=== PATIENT | female | born 1995 | race Caucasian/White ===

== ENCOUNTER 2018-03-16 16:19 | Emergency (ER) | payer OTHER, SELFPAY ==
[2018-03-16 16:25] VITALS: BP 147/79; PULSE 59; RESP 18; TEMP 36.9; O2SAT 100; BMI 32.3
--- NOTE | 2018-03-16 17:02 | ED.VISSUMM ---
- ER Visit Summary Date of Service: 03/16/18 Chief Complaint: Occupational exposure History of Present Illness: The patient is a 22 F presenting for evaluation secondary to an occupational exposure. Patient states that she was using toilet in the emergency department. She went to wipe after she urinated, and she noted that there was a reasonable amount of blood on the toilet paper. She states that she is not currently menstruating and she is not bleeding, when she checked underneath the toilet seat there was blood underneath the toilet seat from an unknown source. States that she then checked the toilet paper and the area that was wet is the same area that there is blood which leads her to believe that there potentially was a mucosal exposure. Denies any symptoms at this time. Physical Examination: Vital signs are within normal limits, patient is afebrile. General: Patient is well-nourished well-developed and in no acute distress. Head: Normocephalic, atraumatic Eyes: Pupils equal round and reactive bilaterally, extra occular motion intact bialterally ENT: Moist mucous membranes Neck: Supple, no lymphadenopathy, no JVD, no meningismus CVS: Heart regular rate and rhythm, no murmurs, rubs or gallops, radial pulses 2+ bilaterally Resp: Respirations nondistressed, lung sounds clear bilaterally Abdomen: Soft, nontender, nondistended, no palpable masses, normal bowel sounds Back: Nontender Extremities: Nontender, atraumatic, active full range of motion, no peripheral edema Skin: warm, no rashes, no petechia Neuro: Alert and oriented x 4, CN 2-12 intact, no lateralizing neurological defecits Psyc: Normal affect Test Results: Exposure panel was drawn and sent and is pending Treatment Plan: Patient presented secondary to an exposure. While this is potentially a mucosal exposure, there is no way to know how long the blood is been there, there is no way to know the source, and this was toilet paper to mucosal, so I do not really think that this is a high risk exposure that would require postexposure prophylaxis. Post exposure panel was drawn, patient will follow up with corporate care. Disposition: Discharge Impression: 1. Occupational exposure This note was generated with [employer] dictation software. It may contain incorrect words, spelling, and punctuation that were not noted in review of the chart prior to signing ED Disposition - Plan for ED Patient: Chief Complaint: Occup Expose Diagnosis: Occupational exposure in workplace Instructions: ED Body Fluid Exp HC Worker Referrals: [facility] [GROUP OF PHYSICIANS] - 3-5 Days
--- NOTE | 2018-03-16 17:05 | ED.DCSUM_ITS ---
- ER Visit Summary Date of Service: 03/16/18 Chief Complaint: Occupational exposure History of Present Illness: The patient is a 22 F presenting for evaluation secondary to an occupational exposure. Patient states that she was using toilet in the emergency department. She went to wipe after she urinated, and she noted that there was a reasonable amount of blood on the toilet paper. She states that she is not currently menstruating and she is not bleeding, when she checked underneath the toilet seat there was blood underneath the toilet seat from an unknown source. States that she then checked the toilet paper and the area that was wet is the same area that there is blood which leads her to believe that there potentially was a mucosal exposure. Denies any symptoms at this time. Physical Examination: Vital signs are within normal limits, patient is afebrile. General: Patient is well-nourished well-developed and in no acute distress. Head: Normocephalic, atraumatic Eyes: Pupils equal round and reactive bilaterally, extra occular motion intact bialterally ENT: Moist mucous membranes Neck: Supple, no lymphadenopathy, no JVD, no meningismus CVS: Heart regular rate and rhythm, no murmurs, rubs or gallops, radial pulses 2 + bilaterally Resp: Respirations nondistressed, lung sounds clear bilaterally Abdomen: Soft, nontender, nondistended, no palpable masses, normal bowel sounds Back: Nontender Extremities: Nontender, atraumatic, active full range of motion, no peripheral edema Skin: warm, no rashes, no petechia Neuro: Alert and oriented x 4, CN 2-12 intact, no lateralizing neurological defecits Psyc: Normal affect Test Results: Exposure panel was drawn and sent and is pending Treatment Plan: Patient presented secondary to an exposure. While this is potentially a mucosal exposure, there is no way to know how long the blood is been there, there is no way to know the source, and this was toilet paper to mucosal, so I do not really think that this is a high risk exposure that would require postexposure prophylaxis. Post exposure panel was drawn, patient will follow up with corporate care. Disposition: Discharge Impression: 1. Occupational exposure This note was generated with [employer] dictation software. It may contain incorrect words, spelling, and punctuation that were not noted in review of the chart prior to signing ED Disposition - Plan for ED Patient: Chief Complaint: Occup Expose Diagnosis: Occupational exposure in workplace Instructions: ED Body Fluid Exp HC Worker Referrals: [facility] [GROUP OF PHYSICIANS] - 3-5 Days
[2018-03-16 19:36] LABS: HIV - WCH Non-Reactive (Nonreactive)
[2018-03-18 09:11] LABS: HEPATITIS B SURFACE AG Negative (Negative); Hep B Surface Antibodies EMP Reactive (.); Hep C Antibodies <0.1 s/co ratio (0.0-0.9)
== END 2018-03-16 17:59 | disposition home or self-care (01) ==
LOC: ED 17:08
PROVIDERS: Emergency Provider Emergency Medicine; Family Provider Family Medicine; PCP Family Medicine
DX: Z77.21 Contact with and (suspected) exposure to potentially hazardous body fluids (principal)
CPT/HCPCS: 86703; 86803; 87340; 99282

== ENCOUNTER 2018-05-25 07:32 | Emergency (ER) | payer OTHER, SELFPAY ==
[2018-05-12 12:05] VITALS: BMI 33.0
[2018-05-25 07:34] VITALS: BP 125/73; PULSE 71; RESP 19; TEMP 37.1; O2SAT 99; BMI 32.3
[2018-05-25 07:49] LABS: Mucous, Urine 0 SEEN /hpf (<or=2+); Red Blood Cells-Urine 0 SEEN /hpf (0-5); White Blood Cells 0 SEEN /hpf (0-5)
[2018-05-25 08:21] LABS: Color, Urine SEE COMMENT BELOW (Yellow); Glucose, Dipstick Normal (Normal); Ketone-Dipstick Negative (Negative); Leukocyte Esterase-Dipstick Negative /ul (Negative); Nitrite-Dipstick Positive (Negative); Occult Blood-Urine Negative /ul (Negative); Protein-Dipstick 30 mg/dl (Negative); Urine Bilirubin Dipstick 6 mg/dL (Negative); Urine Clarity Sl. Cloudy (Clear); Urine Urobilinogen 8 mg/dl (Normal)
[2018-05-25 08:22] LABS: Bacteria 1+ /hpf (None Seen); Squamous Epithelial Cells - UA 0-5 SEEN /hpf (5-10)
--- NOTE | 2018-05-25 08:57 | ED.VISSUMM ---
- ER Visit Summary Date of Service: 05/25/18 Chief Complaint: [Dysuria] History of Present Illness: The patient is a 22 F [presents to the emergency department complaint of dysuria that started 3 days ago. Patient complains of frequency and urgency. Today patient noticed that she had sudden onset of low back pressure that lasted about a minute then mostly resolved. Patient denies any significant abdominal pain. She is not had any fever. She is not had any nausea or vomiting. Patient's last menstrual period was on the 12th of this month and she does not believe she is . Patient denies any pain radiating into her legs. Patient is not had any abnormal vaginal discharge or bleeding. Patient states that she started taking Azo yesterday.] Physical Examination: [HEENT-PERRLA, EOMI. Cranial nerves II through XII grossly intact. TMs clear. Mucous membranes moist. No adenopathy. Cardiovascular-regular rate and rhythm without murmur or ectopy Lungs-clear to auscultation, chest wall stable without crepitus or subcu emphysema Abdomen-normoactive bowel sounds, soft, nontender, no rebound or rigidity, no peritoneal signs. Extremities-intact ?4, normal range of motion, normal pulses, atraumatic] Test Results: [Urinalysis obtained was positive for nitrites, negative leukocyte esterase, 0 WBCs, 0 RBCs, +1 bacteria.] Emergency Department Course and Treatment: [Patient was treated with 1 dose of Bactrim DS] Treatment Plan: [Patient will be treated with 3 days of Bactrim and a urine culture was sent. Clinically I suspect patient has UTI. I do not feel patient's history or signs and symptoms consistent with kidney stone. Her back pain was pressure-like and diffuse bilaterally.] Disposition: [Discharged home in stable condition. Patient advised to follow-up with her primary care physician within next 5-7 days to get her culture results. Patient advised to return if worsening pain, fever, vomiting, or condition should worsen anyway.] Impression: [UTI] This note was generated with [employer] dictation software. It may contain incorrect words, spelling, and punctuation that were not noted in review of the chart prior to signing ED Disposition - Plan for ED Patient: Chief Complaint: Complaint Referrals: Care Physician,No Primary [Primary Care Provider] -
--- NOTE | 2018-05-25 09:00 | ED.DCSUM_ITS ---
- ER Visit Summary Date of Service: 05/25/18 Chief Complaint: [Dysuria] History of Present Illness: The patient is a 22 F [presents to the emergency department complaint of dysuria that started 3 days ago. Patient complains of frequency and urgency. Today patient noticed that she had sudden onset of low b ack pressure that lasted about a minute then mostly resolved. Patient denies any significant abdominal pain. She is not had any fever. She is not had any nausea or vomiting. Patient's last menstrual period was on the 12th of this month and she does not believe she is . Patient denies any pain radiating into her legs. Patient is not had any abnormal vaginal discharge or bleeding. Patient states that she started taking Azo yesterday.] Physical Examination: [HEENT-PERRLA, EOMI. Cranial nerves II through XII grossly intact. TMs clear. Mucous membranes moist. No adenopathy. Cardiovascular-regular rate and rhythm without murmur or ectopy Lungs-clear to auscultation, chest wall stable without crepitus or subcu emphysema Abdomen-normoactive bowel sounds, soft, nontender, no rebound or rigidity, no peritoneal signs. Extremities-intact ?4, normal range of motion, normal pulses, atraumatic] Test Results: [Urinalysis obtained was positive for nitrites, negative leukocyte esterase, 0 WBCs, 0 RBCs, +1 bacteria.] Emergency Department Course and Treatment: [Patient was treated with 1 dose of Bactrim DS] Treatment Plan: [Patient will be treated with 3 days of Bactrim and a urine culture was sent. Clinically I suspect patient has UTI. I do not feel patient's history or signs and symptoms consistent with kidney stone. Her back pain was pressure-like and diffuse bilaterally.] Disposition: [Discharged home in stable condition. Patient advised to follow-up with her primary care physician within next 5-7 days to get her culture results. Patient advised to return if worsening pain, fever, vomiting, or condition should worsen anyway.] Impression: [UTI] This note was generated with [employer] dictation software. It may contain incorrect words, spelling, and punctuation that were not noted in review of the chart patrciia or to signing ED Disposition - Plan for ED Patient: Chief Complaint: Complaint Referrals: Care Physician,No Primary [Primary Care Provider] -
--- NOTE | 2018-05-25 09:00 | ED.DEP ---
ED Disposition - Plan for ED Patient: Chief Complaint: Complaint Instructions: ED UTI Cystitis Female Prescriptions: Smz/Tmp Ds [Bactrim Ds] 1 tab PO BID #6 tab Referrals: Care Physician,No Primary [Primary Care Provider] - 5-7 Days
[2018-05-25 09:07] VITALS: BP 128/75; PULSE 82; RESP 14; O2SAT 99
[2018-05-25] MEDS: Smz/Tmp Ds Tablet 1 TABLET PO (09:10)
--- OUTSIDE RECORDS SUMMARY | 2018-07-06 20:28 | XMS RPT_ITS ---
:1995 Author Organization [facility] Care Team Providers Name Role Phone SERENA II, DIOGO Alanis Referring Unavailable COOPERRIDER II, DIOGO H Referring Unavailable COOPERRIDER II, DIOGO H Attending Unavailable COOPERRIDER II, DIOGO H Referring Unavailable COOPERRIDER II, DIOGO H Referring Unavailable Oberhauser, Ladi L Attending Unavailable Oberhauser, Ladi L Admitting Unavailable Oberhauser, Ladi L Primary Care Unavailable Oberhauser, Ladi L Admitting Unavailable Oberhauser, Ladi L Attending Unavailable Oberhauser, Ladi L Primary Care Unavailable Oberhauser, Ladi L Attending Unavailable Oberhauser, Ladi L Primary Care Unavailable Oberhauser, Ladi L Admitting Unavailable Oberhauser, Ladi L Attending Unavailable Oberhauser, Ladi L Primary Care Unavailable Oberhauser, Ladi L Admitting Unavailable AYO JONES Attending Unavailable AYO JONES Referring Unavailable AYO JONES Primary Care Unavailable JOSE ANTONIO AGUILAR Primary Care Unavailable Jericho Scanlon Attending Unavailable AYO JONES Attending Unavailable AYO JONES Referring Unavailable AYO JONES Primary Care Unavailable Antonio Alberto Attending Unavailable LEILA, JOSE ANTONIO Referring Unavailable Shonda Reyes Attending Unavailable Primay Care Physicia, No Primary Care Unavailable PROBLEMS PROBLEMS DATE TYPE CONDITION / CODE ATTENDING STATUS SOURCE 06/05/2018 Unknown Z77.21 - Contact AYO JONES Active [place] with and Community (suspected) Hospital exposure to Repository potentially hazardous body fluids / Z77.21(ICD-10) 05/12/2018 Unknown R05 - Cough / Antonio Alberto Active [place] R05(ICD-10) [facility] Repository 05/12/2018 Unknown J06.9 - Acute Antonio Alberto Active [place] upper respiratory Community infection, Hospital unspecified / Repository J06.9(ICD-10) 05/12/2018 Unknown J40 - Bronchitis, Antonio Alberto Active [place] not specified as Community acute or chronic Hospital / J40(ICD-10) Repository 03/08/2018 Active Encounter for COOPERRIDER II, Active [facility] general adult DIOGO H [facility] [place] medical Repository examination without abnormal findings / Z00.00(ICD-10) 07/21/2017 Active Myopia, bilateral NA Active [facility] / H52.13(ICD-10) [facility] Repository PROCEDURES PROCEDURES No Procedure Records FoundRESULTS RESULTS HEPATITIS C,RNA PCR Collected: 06/11/2018 Status: F Source: [place] VIRAL [place] 7:07 AM [facility] REPOSITORY TYPE CODE TESTS RESULT OUT OF RANGE REFERENCE UNITS LAB L7000.7100 . IU/mL HCV Normal HCV Not Detected QT PCR LAB L7000.7350 . Test Normal HCV not performed log 10 LAB L7000.7500 . Normal TEST Comment INFO: Result Comment: The quantitative range of this assay is 15 IU/mL to 100 million IU/mL. Performed at: - [facility] [id number] Financial Analysis Manager: Phuong Gomez MD, Phone: [phone] Performed By: #### L7000.7000 #### [facility] (refer to report for specific site) refer to report for address and phone number HIV - [facility] Collected: 06/05/2018 Status: F Source: [place] 11:32 AM [facility] REPOSITORY TYPE CODE TESTS RESULT OUT OF RANGE REFERENCE UNITS LAB L3890.6005 Nonreactive Normal HIV - [facility] Non-Reactive Performed By: #### L3890.6005 #### [facility] [address] [place], [place], [id number] HEPATITIS ABC PROFILE Collected: 06/05/2018 Status: F Source: [place] 11:32 AM [facility] REPOSITORY TYPE CODE TESTS RESULT OUT OF RANGE REFERENCE UNITS LAB L3100.0200 Negative Normal HEP A Negative IgM 6734 LAB L3100.0300 Negative Normal HEP A Negative AB,T.6726 LAB L3100.0400 Negative Normal HB Negative SURF AG LAB L3100.0440 Negative Normal HB Negative CORE [id number] LAB L3100.0460 Negative Normal HEP B Negative CORE,TOT LAB L3100.0510 . Normal Hep B Reactive Greyson AB Result Comment: Non Reactive: Inconsistent with immunity, less than 10 mIU/mL Reactive: Consistent with immunity, greater than 9.9 mIU/mL LAB L3100.0750 0.0-0.9 s/co ratio Normal HCV Ab 0.1 LAB L3100.0765 . Normal COMMENT Comment Result Comment: Non reactive HCV antibody screen is consistent with no HCV infection, unless recent infection is suspected or other evidence exists to indicate HCV infection. Performed at: - [facility] [id number] Financial Analysis Manager: Jose Cruz Brown PhD, Phone: [phone] Performed By: #### L3000.0700 #### [facility] (refer to report for specific site) refer to report for address and phone number DISCHARGE INSTRUCTION Observed: 05/25/2018 Status: F Source: [place] 9:02 AM [facility] REPOSITORY [facility] Medical Records Department [address] [place] [address] Discharge Instruction 05/25/18 09 MR#: [id number] Acct: [id number] Name: FELIXVIANCA Rep #: [id number] : 1995 From: Shonda Reyes DO PCP: Care Physician, No Primary Status: REG ER ED Disposition - Plan for ED Patient: Chief Complaint: Complaint Instructions: ED UTI Cystitis Female Prescriptions: Smz/Tmp Ds [Bactrim Ds] 1 tab PO BID #6 tab Referrals: Care Physician,No Primary [Primary Care Provider] - 5-7 Days What to do if you have Problems For any increased pain, shortness of breath, bleeding, nausea or vomiting, chest pain, or any unexpected problems, contact your Primary Care Provider. Call [facility] ([phone]) or report to the closest Emergency Room. Call 911 if necessary. 05/25/18 09 <Electronically signed by Shonda Reyes DO> Date Shonda Reyes DO Cosigner Signature (If Indicated): Date CC: No Primary Care Physician EMERGENCY DEPARTMENT Observed: 05/25/2018 Status: F Source: [place] SUMMARY 9:00 AM [facility] REPOSITORY [facility] Medical Records Department [address] [place] [address] Emergency Department Summary 05/25/18 0857 MR#: [id number] Acct: [id number] Name: FELIXVIANCA Rep #: [id number] : 1995 From: Shonda Reyes DO PCP: Care Physician, No Primary Status: REG ER - ER Visit Summary Date of Service: 05/25/18 Chief Complaint: [Dysuria] History of Present Illness: The patient is a 22 F [presents to the emergency department complaint of dysuria that started 3 days ago. Patient complains of frequency and urgency. Today patient noticed that she had sudden onset of low back pressure that lasted about a minute then mostly resolved. Patient denies any significant abdominal pain. She is not had any fever. She is not had any nausea or vomiting. Patient's last menstrual period was on the 12th of this month and she does not believe she is . Patient denies any pain radiating into her legs. Patient is not had any abnormal vaginal discharge or bleeding. Patient states that she started taking Azo yesterday.] Physical Examination: [HEENT-PERRLA, EOMI. Cranial nerves II through XII grossly intact. TMs clear. Mucous membranes moist. No adenopathy. Cardiovascular-regular rate and rhythm without murmur or ectopy Lungs-clear to auscultation, chest wall stable without crepitus or subcu emphysema Abdomen-normoactive bowel sounds, soft, nontender, no rebound or rigidity, no peritoneal signs. Extremities-intact 4, normal range of motion, normal pulses, atraumatic] Test Results: [Urinalysis obtained was positive for nitrites, negative leukocyte esterase, 0 WBCs, 0 RBCs, +1 bacteria.] Emergency Department Course and Treatment: [Patient was treated with 1 dose of Bactrim DS] Treatment Plan: [Patient will be treated with 3 days of Bactrim and a urine culture was sent. Clinically I suspect patient has UTI. I do not feel patient's history or signs and symptoms consistent with kidney stone. Her back pain was pressure- like and diffuse bilaterally.] Disposition: [Discharged home in stable condition. Patient advised to follow-up with her primary care physician within next 5-7 days to get her culture results. Patient advised to return if worsening pain, fever, vomiting, or condition should worsen anyway.] Impression: [UTI] This note was generated with [employer] dictation software. It may contain incorrect words, spelling, and punctuation that were not noted in review of the chart prior to signing ED Disposition - Plan for ED Patient: Chief Complaint: Complaint Referrals: Care Physician,No Primary [Primary Care Provider] - What to do if you have Problems For any increased pain, shortness of breath, bleeding, nausea or vomiting, chest pain, or any unexpected problems, contact your Primary Care Provider. Call [facility] ([phone]) or report to the closest Emergency Room. Call 911 if necessary. 05/25/18 0900 <Electronically signed by Shonda Reyes DO> Date Shonda Reyes DO Cosigner Signature (If Indicated): Date CC: No Primary Care Physician URINALYSIS, COMPLETE Collected: 05/25/2018 Status: F Source: [place] 7:45 AM [facility] REPOSITORY Order Comment: How was Urine Obtained? CLEAN CATCH TYPE CODE TESTS RESULT OUT OF RANGE REFERENCE UNITS LAB L400.3000 Yellow Normal COLOR SEE COMMENT BELOW Result Comment: Visual Urine Color: ORANGE LAB L400.3050 Clear Normal CLARITY Sl. Cloudy LAB L400.3200 Normal mg/dl Normal GLUCOSE, UR Normal LAB L400.3300 Negative mg/dL High BILIRUBIN URINE 6 Result Comment: COLOR OF URINE MAY AFFECT DIPSTICK RESULTS. LAB L400.3400 Negative mg/dl Normal KETONE UR Negative LAB L400.3465 1.002-1.030 Normal SP.GR. DIPSTX 1.010 LAB L400.3550 5.0 - 8.0 pH Normal UR 5.0 LAB L400.3600 Negative mg/dl High PROT DIPSTX 30 LAB L400.3700 Normal mg/dl High UROBILI 8 LAB L400.3750 Negative High NITRITE UR Positive LAB L400.3780 Negative /ul Normal OCCULT Negative BLOOD-UR LAB L400.3800 Negative /ul Normal LEUK ESTERASE Negative LAB L400.4050 0-5 /hpf Normal WBC 0 SEEN LAB L400.4100 0-5 /hpf Normal RBC-UA 0 SEEN LAB L400.4150 5-10 /hpf Normal SQUAM EPI 0-5 SEEN LAB L400.4300 None Seen /hpf Normal BACTERIA 1+ LAB L400.4350 <or=2+ /hpf Normal MUCUS, URINE 0 SEEN Performed By: #### L400.0001 #### [facility] [address] [place], [place], [id number] Observed: 05/25/2018 Status: F Source: [place] CULTURE, URINE 7:45 AM [facility] REPOSITORY Order Date: 05/25/18 Has pt arrived? Y Urine Culture ORGANISM 1: Mixed Gram Pos AND Gram Neg Org [place] Count <1000 MIX CULTURE Mixed contaminants. Submit a new specimen if indicated. Performed By: #### M100.0650 #### [facility] [address] [place], [place], [address] URGENT CARE VISIT Observed: 05/12/2018 Status: F Source: [place] REPORT 12:56 PM [facility] REPOSITORY [facility] [address] [place] [address] [address] [place], [place] [address] OFFICE VISIT Date of Service: 05/12/18 MR#: [id number] Acct: [id number] Name: VIANCA AQUINO Rep #: [id number] : 1995 Provider: Antonio ALBA Age/Sex: 22/F Location: [facility] Status: Signed Intake Vital Signs05/12/18 Height 5 ft 10 in 05/12/18 Weight: 230 lb Intake Visit Reasons: SORE THROAT, COUGH, HEAD CONGESTION Chief Complaint: Dry cough, body aches Table Assembler Required: No Accompanied by: None Allergies No Known Allergies Allergy (Verified 03/16/18 16:27) Medications benzonatate 200 mg capsule 200 mg PO TID PRN #20 cap 05/12/18 [Rx Confirmed 05/12/18] PFSH Medical History History of wisdom tooth extraction (Acute) Surgical History History of tonsillectomy (Acute) Social History Smoking Status: Never smoker alcohol intake: current alcohol intake frequency: holidays/special occasions only Alcohol type: hard liquor HPI HPI Chief Complaint: Dry cough, body aches Details: VIANCA AQUINO, is a 22 F who presents to the office today for initial evaluation approximate 24-hour history of progressively worsening dry cough, chills, clear rhinorrhea, body aches. No complaints of fever, sweats, rash, chest pain/shortness of breath. Patient is a non-smoker, noting no other members in household with similar complaints. Patient is particularly concerned because she works in the hospital in environmental services and is current concerned about spreading her probable infection. She notes taking no ighx-udx-sbvlqju products to assist with symptoms. She notes no other associated symptoms and no other alleviating or aggravating factors. ROS Const Constitutional: No other (ROS negative x10 other than as noted above) Exam Const General: cooperative, healthy appearing, no acute distress, uncomfortable Nutritional Appearance: average body habitus Orientation: alert, awake, oriented x3 HENMT Head: normal to inspection Ears: hearing grossly normal bilaterally, external ears normal, TM's normal bilaterally, EAC's normal Nose: external nose normal, nares normal, septum normal, nasal discharge clear bilaterally (Scant amount) Face and sinus: sinuses nontender, normal facial exam, face symmetric Mouth: tongue normal, lip normal, oral mucosae normal Teeth and gingiva: gingiva normal, dentition normal Throat: uvula midline, tonsils normal, posterior oropharynx normal, no postnasal drainage Eyes General: appearance normal, both eyes and all related structures Neck Neck: normal visual inspection, full ROM, no lymphadenopathy, no meningeal signs, supple Neck mass: No Thyroid: thyroid normal Lymphatic: no lymphadenopathy noted Chest Chest palpation AND inspection: normal inspection of the chest Resp Effort AND Inspection: normal respiratory effort, able to speak in complete sentences, symmetric chest movement, cough Quality of cough: dry (Nonproductive; rapid flu test today negative) Auscultation: Bilateral: Clear to Auscultation Cardio Palpation: normal PMI Rate: regular rate Rhythm: regular rhythm Heart Sounds: S1 normal, S2 normal, no gallops, no murmurs, no rubs Pulses: radial pulses present GI Inspection: normal to inspection Palpation: soft, no hepatosplenomegaly Skin General: no rashes or lesions noted Neuro General: alert, awake, oriented x3, gait normal Cognition: normal cognition Speech: speech normal Gait: normal gait Motor: muscle tone normal throughout Sensory Exam: no sensory deficits noted Psych Appearance: grossly normal Mental Status: mental status grossly normal Mood: congruent mood Affect: normal affect Speech and Movement: speech and movement normal Attitude: cooperative Thought Process: normal Thought Content: normal Judgment: judgment good Results BMSFLUAB Office Flu A AND B Negative FLU A AND B Last Edit by Saskia Bull on 05/12/18 12:34 Assessment AND Plan Problems 1. URI (upper respiratory infection) J06.9 2. Bronchitis J40 Plan Benzonatate as prescribed today. Work excuse for today and tomorrow; if work excuse knees extended must follow-up with PCP for reevaluation. Clear fluids, rest, Advil/Tylenol as needed for symptomatic relief. Follow-up PCP on an as-needed basis should symptoms not improve, sooner should symptoms worsen or any other concerns develop. Patient states acknowledging understanding all the above. This note was generated with [employer] software. It may contain incorrect words, spelling, and punctuation that were not noted in checking the note before signing. Orders Orders: Medications New: Coding Level of Care Code Off vis,new,level 3 Diagnoses URI (upper respiratory infection) J06.9 Bronchitis J40 05/12/18 1256 <Electronically signed by Antonio ALBA> Date Antonio ALBA [facility] Signature: Date (if applicable) CC: EMERGENCY DEPARTMENT Observed: 03/17/2018 Status: F Source: [place] SUMMARY 2:35 AM [facility] Medical Records Department [address] [place] [address] Emergency Department Summary 03/16/18 1702 MR#: [id number] Acct: [id number] Name: VIANCA AQUINO Rep #: [id number] : 1995 22 From: Jericho Scanlon MD PCP: Jose Antonio Aguilar MD Status: DEP ER - ER Visit Summary Date of Service: 03/16/18 Chief Complaint: Occupational exposure History of Present Illness: The patient is a 22 F presenting for evaluation secondary to an occupational exposure. Patient states that she was using toilet in the emergency department. She went to wipe after she urinated, and she noted that there was a reasonable amount of blood on the toilet paper. She states that she is not currently menstruating and she is not bleeding, when she checked underneath the toilet seat there was blood underneath the toilet seat from an unknown source. States that she then checked the toilet paper and the area that was wet is the same area that there is blood which leads her to believe that there potentially was a mucosal exposure. Denies any symptoms at this time. Physical Examination: Vital signs are within normal limits, patient is afebrile. General: Patient is well-nourished well-developed and in no acute distress. Head: Normocephalic, atraumatic Eyes: Pupils equal round and reactive bilaterally, extra occular motion intact bialterally ENT: Moist mucous membranes Neck: Supple, no lymphadenopathy, no JVD, no meningismus CVS: Heart regular rate and rhythm, no murmurs, rubs or gallops, radial pulses 2+ bilaterally Resp: Respirations nondistressed, lung sounds clear bilaterally Abdomen: Soft, nontender, nondistended, no palpable masses, normal bowel sounds Back: Nontender Extremities: Nontender, atraumatic, active full range of motion, no peripheral edema Skin: warm, no rashes, no petechia Neuro: Alert and oriented x 4, CN 2-12 intact, no lateralizing neurological defecits Psyc: Normal affect Test Results: Exposure panel was drawn and sent and is pending Treatment Plan: Patient presented secondary to an exposure. While this is potentially a mucosal exposure, there is no way to know how long the blood is been there, there is no way to know the source, and this was toilet paper to mucosal, so I do not really think that this is a high risk exposure that would require postexposure prophylaxis. Post exposure panel was drawn, patient will follow up with [facility]. Disposition: Discharge Impression: 1. Occupational exposure This note was generated with [employer] dictation software. It may contain incorrect words, spelling, and punctuation that were not noted in review of the chart prior to signing ED Disposition - Plan for ED Patient: Chief Complaint: Occup Expose Diagnosis: Occupational exposure in workplace Instructions: ED Body Fluid Exp HC Worker Referrals: Corporate,Care [GROUP OF PHYSICIANS] - 3-5 Days What to do if you have Problems For any increased pain, shortness of breath, bleeding, nausea or vomiting, chest pain, or any unexpected problems, contact your Primary Care Provider. Call [facility] ([phone]) or report to the closest Emergency Room. Call 911 if necessary. 03/17/18 0235 <Electronically signed by Jericho Scanlon MD> Date Jericho Scanlon MD Cosigner Signature (If Indicated): Date CC: Jose Antonio Aguilar MD HIV - [facility] Collected: 03/16/2018 Status: F Source: [place] 5:40 PM [facility] REPOSITORY Order Comment: Has pt arrived? Y TYPE CODE TESTS RESULT OUT OF RANGE REFERENCE UNITS LAB L3890.6005 Nonreactive Normal HIV - [facility] Non-Reactive Performed By: #### L3890.6005 #### [facility] [address] [place], [place], [address] HEPATITIS B SURFACE Collected: 03/16/2018 Status: F Source: [place] AG 5:40 PM [facility] REPOSITORY Order Comment: Has pt arrived? Y TYPE CODE TESTS RESULT OUT OF RANGE REFERENCE UNITS LAB L3100.0400 Negative Normal HB Negative SURF AG Result Comment: Performed at: - [facility] [id number] Financial Analysis Manager: Jose Cruz Brown PhD, Phone: [phone] Performed By: #### L3100.0390, L3100.0554, L3100.0696 #### [facility] (refer to report for specific site) refer to report for address and phone number HEP B SURFACE Collected: 03/16/2018 Status: F Source: [place] ANTIBODIES EMP 5:40 PM [facility] REPOSITORY Order Comment: Has pt arrived? Y TYPE CODE TESTS RESULT OUT OF RANGE REFERENCE UNITS LAB L3100.0537 . Normal Hep B Reactive Greyson AB Result Comment: Non Reactive: Inconsistent with immunity, less than 10 mIU/mL Reactive: Consistent with immunity, greater than 9.9 mIU/mL Performed By: #### L3100.0390, L3100.0537, L3100.0625 #### [facility] (refer to report for specific site) refer to report for address and phone number HEPATITIS C ANTIBODIES Collected: 03/16/2018 Status: F Source: [place] 5:40 PM [facility] REPOSITORY Order Comment: Has pt arrived? Y TYPE CODE TESTS RESULT OUT OF RANGE REFERENCE UNITS LAB L3100.0650 0.0-0.9 s/co ratio Normal HEP C AB <0.1 Result Comment: Negative: < 0.8 Indeterminate: 0.8 - 0.9 Positive: > 0.9 The CDC recommends that a positive HCV antibody result be followed up with a HCV Nucleic Acid Amplification test (061848). Performed By: #### L3100.0390, L3100.0537, L3100.0625 #### [facility] (refer to report for specific site) refer to report for address and phone number PROGRESS Observed: 03/08/2018 Status: COMPLETED Source: [place] 10:36 AM [facility] REPOSITORY O ID: [id number] Author: Diogo Gonzales II Service: (none) Author Type: COMPUTER SYSTEMS ARCHITECT Type: Progress Notes Filed: 03/08/2018 10:40 AM Note Text: ASSESSMENT/PLAN: 1. Myopia of both eyes - ICD9: 367.1, ICD10: H52.13 (primary diagnosis) 2. Regular astigmatism of both eyes - ICD9: 367.21, ICD10: H52.223 3. Anisometropia - ICD9: 367.31, ICD10: H52.31 Ocular health maintained with contact lens use. [place] stable. Continue with daily disposable contact lenses. Recheck in one year. 4. Glaucoma suspect of both eyes - ICD9: 365.00, ICD10: H40.003 Glaucoma suspect both eyes due to optic nerve cupping, family history, and previously noted NFL anomalies. Stable nerve fiber layers in areas scanned today. Monitor yearly. No treatment indicated at this time. Discussed need for continued close observation to minimize chance of future vision loss. I have confirmed and edited as necessary the relevant ophthalmic history, review of systems, surgical history, and ophthalmological examination findings as obtained by the ophthalmic technical staff. I have seen and examined Vianca Aquino. I have discussed the examination findings, diagnosis, and treatment options with the patient and/or the patient's family. I have also reviewed and agree with the assessment and plan as stated above and agree with all its relevant components. I gave the patient the opportunity to ask questions about the findings, diagnosis, and treatment options. Diogo Gonzales, II, OD CBC W/ AUTO DIFF Collected: 09/25/2017 Status: F Source: [place] 12:35 [facility] REPOSITORY TYPE CODE TESTS RESULT OUT OF RANGE REFERENCE UNITS LAB 70595083(L 3.6-11.0 E3/mcL OINC) Normal WBC 5.7 LAB 45966486(L 3.90-5.40 E6/mcL OINC) Normal RBC 4.33 LAB 94567405(L 12.0-16.0 G/DL OINC) Normal Hgb 13.2 LAB 25999342(L 36.0-48.0 % OINC) Normal Hct 38.7 LAB 32724823(L 11.5-14.5 % OINC) Normal RDW 12.7 LAB 00916171(L 27.0-31.0 pg OINC) Normal MCH 30.5 LAB 78233058(L 33.0-37.0 G/DL OINC) Normal MCHC 34.2 LAB 61718315(L 78.0-100.0 fL OINC) Normal MCV 89.3 LAB 20225123(L 7.4-11.0 fL OINC) Normal MPV 8.7 LAB 87821502(L 130-400 E3/mcL OINC) Normal Platelet 206 Performed By: #### [id number] #### [facility] [address] [place] [address] AUTO DIFF Collected: 09/25/2017 Status: F Source: [place] 12:35 [facility] REPOSITORY Order Comment: Order Added by Discern Expert. TYPE CODE TESTS RESULT OUT OF RANGE REFERENCE UNITS LAB 51422056(L 37.0-75.0 % OINC) Normal Neutro Auto 64.0 LAB 56667372(L 20.0-55.0 % OINC) Normal Lymph Auto 24.9 LAB 21349831(L 0.0-10.0 % OINC) Normal [place] Auto 9.1 LAB 61655399(L 0.0-11.0 % OINC) Normal Eos Auto 1.4 LAB 81377212(L 0.0-2.0 % OINC) Normal Basophil Auto 0.6 LAB 79537885(L 1.4-6.5 E3/mcL OINC) Normal Neutro 3.7 Absolute LAB 41301139(L 1.2-3.4 E3/mcL OINC) Normal Lymph Absolute 1.4 LAB 15392995(L 0.0-0.7 E3/mcL OINC) Normal [place] Absolute 0.5 LAB 33948040(L 0.0-0.7 E3/mcL OINC) Normal Eos Absolute 0.1 LAB 56895641(L 0.0-0.2 E3/mcL OINC) Normal Basophil 0.0 Absolute Performed By: #### [id number] #### [facility] [address] [place] [address] CMP Collected: 09/25/2017 Status: F Source: [place] 12:35 PM [facility] [facility] TYPE CODE TESTS RESULT OUT OF RANGE REFERENCE UNITS LAB 49457071(L 70-99 mg/dL OINC) Glucose Normal Lvl 84 LAB 28539953(L 8.4-10.2 mg/dL OINC) Calcium Normal Lvl 9.1 LAB 73984113(L 136-145 mEq/L OINC) Sodium Normal Lvl 138 LAB 37194559(L 3.5-5.1 mEq/L OINC) Normal Potassium Lvl 4.5 LAB 09800370(L 98-107 mEq/L OINC) Chloride Normal 106 LAB 52119634(L 24.0-30.0 mEq/L OINC) CO2 Normal 25.3 LAB 15578171(L 7-18 mg/dL OINC) BUN Normal 9 LAB 9560842(LO 0.6-1.3 mg/dL INC) Normal Creatinine 0.7 LAB 57694556(L 42-121 Int._Unit/ OINC) L Alk Phos Normal 60 LAB 07381622(L 0.2-1.0 mg/dL OINC) Bili Normal Total 0.5 LAB 10035650(L 3.2-5.0 G/DL OINC) Albumin Normal Lvl 4.0 LAB 62133069(L 6.4-8.3 G/DL OINC) Total Normal Protein 7.5 LAB 80949717(L 10-40 Int._Unit/ OINC) L ALT Normal 20 LAB 12839803(L 10-42 Int._Unit/ OINC) L AST Normal 21 LAB 47041867(L 5.4-30.0 ratio OINC) Normal BUN/Creat Ratio 12.9 LAB 38463695(L 2.0-4.0 G/DL OINC) Globulin Normal 3.5 LAB 59250883(L 1.1-1.9 ratio OINC) A/G Normal Ratio 1.1 Performed By: #### [id number] #### DESEAN Capzles [address] [place], [place] [address] EGFR Collected: 09/25/2017 Status: F Source: GNOSTICIST 12:35 [facility] REPOSITORY Order Comment: Order added by Discern Expert. TYPE CODE TESTS RESULT OUT OF RANGE REFERENCE UNITS LAB 83126138(LO mL/min/1.73 INC) m2 Normal eGFR >60 LAB 57685124(LO mL/min/1.73 INC) m2 Normal eGFR AA >60 Performed By: #### [id number] #### DESEAN Capzles [address] [place], [place] [address] LIPID PROFILE Collected: 09/25/2017 Status: F Source: GNOSTICIST 12:35 [facility] REPOSITORY TYPE CODE TESTS RESULT OUT OF RANGE REFERENCE UNITS LAB 39675503(LO 50-200 mg/dL INC) Normal Chol 130 Result Comment: TOTAL CHOLEESTEROL: <200 NORMAL 200 - 239 BORDERLINE HIGH >240 HIGH LAB 00871844(LOINC) >=41 mg/dL Normal HDL 44 LAB 97708627(LOINC) 0-130 mg/dL Normal LDL 76 Result Comment: <100 OPTIMAL 100-129 NEAR / ABOVE OPTIMAL 130-159 BORDERLINE HIGH 160-189 HIGH >190 VERY HIGH CALC LDL NOT VALID WHEN TRIGLYCERIDE IS >400 MG/DL LAB 38023051(LOINC) 35-150 mg/dL Normal Trig 50 Result Comment: <150 NORMAL 150-199 BORDERLINE HIGH 200-499 HIGH >500 VERY HIGH LAB 31221954(LOINC) Normal VLDL 10 Performed By: #### [id number] #### DESEAN [facility] [address] [place] [address] TSH Collected: 09/25/2017 Status: F Source: GNOSTICIST 12:35 PM [facility] REPOSITORY TYPE CODE TESTS RESULT OUT OF RANGE REFERENCE UNITS LAB 56477228(LO 0.30-5.60 mIU/m INC) Normal TSH 1.28 Performed By: #### [id number] #### DESEAN [facility] [place] [address] ALLERGIES ALLERGIES DATE TYPE / CODE NAME / CODE REACTION SEVERITY SOURCE 05/25/2018 Drug No Known Unknown [facility] Allergy/416 Allergies/Y60872 Hospital 755846(SNOM 0388(RXNORM) Repository ED CT) Drug/600857 No Known Sikhism 003(SNOMED Allergies [facility] CT) System Repository Drug NO KNOWN [facility] Class/69712 ALLERGIES [place] 1003(SNOMED Repository CT) ENCOUNTERS ENCOUNTERS ADMIT/DISCHARGE ACCOUNT NUMBER ADMITTING ENCOUNTER LOCATION SOURCE CLASS 06/11/2018 [id number] Ambulatory [facility] ding:LAB Repository 06/10/2018/06/10/20 [id number] [place] [address] [facility] oom: Room 1 Repository 06/05/2018 [id number] [facility] ding:LAB Repository 05/31/2018/06/04/20 [id number] Ambulatory [address] Repository 05/25/2018/05/25/20 [id number] Emergency [address] ding:ED Repository 05/12/2018/05/12/20 [id number] Ambulatory BMSBuilding: [address] Repository 03/24/2018/03/24/20 [id number] [place] [address] eBuilding:[facility] oom: Room 1 Repository 03/16/2018/03/16/20 [id number] Emergency [address] ding:ED Repository 03/08/2018/03/09/20 [id number] Ambulatory [address] Repository 02/11/2018/02/13/20 [id number] Ambulatory [address] Repository 09/25/2017/09/26/19 [id number] [place], Ambulatory [facility] [address] [facility] ding:[facility] Repository 09/25/2017/09/26/19 [id number] [place], Ambulatory [facility] [address] eBuilding:[facility] oom: Room 2 Repository 07/21/2017/07/22/19 [id number] Ambulatory [address] Repository PAYERS PAYERS ENCOUNTER GUARANTOR PAYER SUBSCRIBER SOURCE 06/11/2018 VIANCA AGUILA Primary NOT GIVENUNK [place] [id number] [address] Insurance:SELF PAY [place], [place] [facility] [address]Vcv: 419) Number: Effective Repository [phone] () Date:2018-06-11 06/10/2018 VIANCA Marti Primary ESHA E [facility]: [facility]:1500 [id number] [place] [address] [facility] Number: [facility] [place] Date:2018-06-10 [address]Ckn: [phone]: [id number] Name:CD:[id number] O ()Tel: [phone]) () [address] [place] [phone] (PM) [address]OP: 06/05/2018 VIANCA AGUILA Primary Esha E GuyDOB: Marcelo [id number] [address] Insurance:[id number] Number: [facility] [address]Mrb: 419 [id number] Repository [phone] () Date:0695-13-78KL [address] [place] [address]BW: 06/05/2018 Secondary NOT GIVENUNK Div[place] Insurance:SELF PAY [facility] Number: Effective Repository Date:2018-04-01 05/25/2018 VIANCA VERASA Primary ANAHI MATUTEOB: Div[place] [id number] [address] Insurance:AETNAPolicy [id number] [facility] Number: Hospital [address]Gqa: 419 [id number] Repository [phone] (HP) Date:3784-15-00LY [address] [address]RG: 05/25/2018 Secondary NOT GIVENUNK Marcelo Insurance:SELF PAY [facility] Number: Effective Repository Date:2018-05-25 05/12/2018 VIANCA VERASA Primary Esha E GarcíaOB: Divide [id number] [address] Insurance:AETNAPolicy [id number] [place] Number: Hospital [address]Xeg: 419 [id number] Repository [phone] (HP) Date:4980-91-48IE [address] [address]ZK: 05/12/2018 Secondary NOT GIVENUNK Marcelo Insurance:SELF PAY [facility] Number: Effective Repository Date:2018-05-12 03/24/2018 VIANCA A Primary ESHA E DAVIDYDOB: Sikhism GUYDOB: Insurance:1500 [id number] [facility] AETNAPolic Number: MID[place]LE [facility], System MID[facility]LE [facility], [place] [id number]: Date:2018-03-24 [address]Svf: [id number] (HP) Name:CD:[id number] O ()Tel: (991) [address] [place] [phone] (EP) [address]LZ: 03/16/2018 VIANCA AGUILA Primary Esha E GuyDOB: Marcelo [id number] [facility] Insurance:AETNAPolicy [id number] by [facility] [place] Number: Hospital [address]Zkk: 419 [id number] Repository [phone] (HP) Date:2674-17-52WQ [address] [address]DA: 03/16/2018 Secondary NOT GIVENUNK Divide Insurance:SELF PAY [facility] Number: Effective Repository Date:2018-03-16 09/25/2017 VIANCA A Primary ESHA E GUYDOB: Sikhism GUYDOB: Insurance:AETNAPolicy [id number] [facility] Number: Effective [facility], [facility], Date:2017-09-25 - [place] [id number]: Repository [place] [id number]: [id number] Name:CD:[id number] BOX (HP)Tel: [phone]) (HP) 685393[place]FC[place], [place] [phone] (LD) [id number]: 09/25/2017 VIANCA Marti Primary ESHA E GUYDOB: Sikhism GUYDOB: Insurance:1500 [id number] [facility] AETNAPolicy Number: [facility], System [facility], Effective [place] [id number]: Repository [place] [id number]: Date:2017-09-25 - 2100-12-31Plan (HP)Tel: [phone]) (HP) Name:CD:[id number] [phone] (WP) [address] [place], [place] [address]VO:
== END 2018-05-25 09:11 | disposition home or self-care (01) ==
LOC: ED 07:58
PROVIDERS: Emergency Provider Emergency Medicine
DX: N39.0 Urinary tract infection, site not specified (principal)
CPT/HCPCS: 81001; 87086; 87088; 99282

== ENCOUNTER → 2018-06-05 11:26 | Outpatient (CLI) | payer OTHER, SELFPAY ==
[2018-05-25 07:34] VITALS: BMI 32.3
[2018-06-06 20:05] LABS: HEPATITIS B SURFACE AG Negative (Negative); Hepatitis A AB, Total Negative (Negative); Hepatitis A IgM Antibody Negative (Negative); Hepatitis B Core AB IgM Negative (Negative); Hepatitis B Core Ab Total Negative (Negative); Hepatitis C Ab 0.1 s/co ratio (0.0-0.9)
[2018-06-07 11:02] LABS: HIV - WCH Non-Reactive (Nonreactive)
[2018-06-07 14:29] LABS: Hep B Surface Antibodies Reactive (.)
== END ==
DX: Z77.21 Contact with and (suspected) exposure to potentially hazardous body fluids (principal)
CPT/HCPCS: 36415; 86703; 86704; 86705; 86706; 86708; 86709; 86803; 87340

== ENCOUNTER → 2018-06-28 14:10 | Outpatient (CLI) | payer OTHER, SELFPAY ==
[2018-06-28 11:07] VITALS: BMI 32.3
[2018-06-28 15:12] LABS: Bacteria 0 SEEN /hpf (None Seen); Mucous, Urine 0 SEEN /hpf (<or=2+); Red Blood Cells-Urine 0 SEEN /hpf (0-5); White Blood Cells 0 SEEN /hpf (0-5)
[2018-06-28 15:52] LABS: Color, Urine Yellow (Yellow); Glucose, Dipstick Normal (Normal); Ketone-Dipstick Negative (Negative); Leukocyte Esterase-Dipstick Negative /ul (Negative); Nitrite-Dipstick Negative (Negative); Occult Blood-Urine Negative /ul (Negative); Protein-Dipstick Negative (Negative); Specific Gravity, Urine 1.005 (1.002-1.030); Urine Bilirubin Dipstick Negative (Negative); Urine Clarity Clear (Clear); Urine Urobilinogen Normal (Normal)
[2018-06-28 17:17] LABS: Squamous Epithelial Cells - UA 0-5 SEEN /hpf (5-10)
== END ==
PROVIDERS: Referring Provider Physician Assistant Surgical; Visit Provider Physician Assistant Surgical
DX: R30.0 Dysuria (principal)
CPT/HCPCS: 81001; 87086

== ENCOUNTER → 2018-07-05 18:05 | Outpatient (CLI) | payer OTHER, SELFPAY ==
[2018-07-05 15:34] VITALS: BMI 32.3
[2018-07-05 22:41] LABS: Chlamydia Trachomatis by PCR Negative (Negative); Neisserai gonorrhoeae by PCR Negative (Negative); Probe Check PASS; Sample Adequacy Control PASS; Specimen Processing Control PASS
== END ==
PROVIDERS: Referring Provider Nurse Practitioner Women's Health; Visit Provider Nurse Practitioner Women's Health
DX: Z11.3 Encounter for screening for infections with a predominantly sexual mode of transmission (principal)
CPT/HCPCS: 87491; 87591

== ENCOUNTER → 2018-07-06 06:52 | Outpatient (CLI) | payer OTHER, SELFPAY ==
[2018-07-05 15:34] VITALS: BMI 32.3
[2018-07-06 10:23] LABS: HIV - WCH Non-Reactive (Nonreactive)
[2018-07-08 08:13] LABS: HCV Quant. RNA PCR HCV Not Detected IU/mL (.)
[2018-07-08 14:46] LABS: HSV 1 IgG 9.89 index (0.00-0.90); HSV 2 IgG < 0.91 index (0.00-0.90)
[2018-07-09 03:30] LABS: Rapid Plasmin Reagin (RPR) NONREACTIVE (NONREACTIVE)
== END ==
PROVIDERS: Referring Provider Nurse Practitioner Women's Health; Visit Provider Nurse Practitioner Women's Health
DX: Z11.3 Encounter for screening for infections with a predominantly sexual mode of transmission (principal)
CPT/HCPCS: 36415; 86592; 86695; 86696; 86703; 87522

== ENCOUNTER → 2018-07-16 12:10 | Outpatient (CLI) | payer OTHER, SELFPAY ==
[2018-07-05 15:34] VITALS: BMI 32.3
--- NOTE | 2018-07-16 12:11 | US_ITS ---
STUDY: ULTRASOUND OF THE FEMALE PELVIS - COMPLETE REASON FOR EXAM: Female, 22 years old. Pelvic pain. LMP: July 05, 2018. TECHNIQUE: Transabdominal and Transvaginal TECHNICAL QUALITY: Adequate. COMPARISON: None. FINDINGS: The uterus is anteverted and is in a midline position. The uterus measures 6.9 cm x 4 cm x 3.0 cm. Normal uterine cervix. The endometrium measures 2.2 mm in thickness, and is hyperechoic. There is no demonstrated endometrial mass. There is no demonstrated myometrial mass. I.U.D. - The patient does not have an I.U.D. . Trace amount of fluid is seen in the cervix. The right ovary is visualized. The right ovary measures 2.8 cm x 2.2 cm x 1.4 cm. There is no right ovarian cyst or ovarian mass. There is no visualized right adnexal mass or complex lesion. There is normal arterial and normal venous vascularity. The left ovary is visualized. The left ovary measures 2.2 cm x 2.5 cm x 1.4 cm. There is no left ovarian cyst or ovarian mass. There is no visualized left adnexal mass or complex lesion. There is normal arterial and normal venous vascularity. There is no fluid in the cul-de-sac. The pre void volume of the bladder was 822 ml. Polycystic ovary disease: No. US/Pelvic (Non ) IMPRESSION: Normal female pelvis. Electronically Signed: Jose Larsen MD at 15:27 EST Tel [phone], Service support ,
--- NOTE | 2018-07-16 12:11 | US_ITS ---
STUDY: ULTRASOUND OF THE FEMALE PELVIS - COMPLETE REASON FOR EXAM: Female, 22 years old. Pelvic pain. LMP: July 05, 2018. TECHNIQUE: Transabdominal and Transvaginal TECHNICAL QUALITY: Adequate. COMPARISON: None. FINDINGS: The uterus is anteverted and is in a midline position. The uterus measures 6.9 cm x 4 cm x 3.0 cm. Normal uterine cervix. The endometrium measures 2.2 mm in thickness, and is hyperechoic. There is no demonstrated endometrial mass. There is no demonstrated myometrial mass. I.U.D. - The patient does not have an I.U.D. . Trace amount of fluid is seen in the cervix. The right ovary is visualized. The right ovary measures 2.8 cm x 2.2 cm x 1.4 cm. There is no right ovarian cyst or ovarian mass. There is no visualized right adnexal mass or complex lesion. There is normal arterial and normal venous vascularity. The left ovary is visualized. The left ovary measures 2.2 cm x 2.5 cm x 1.4 cm. There is no left ovarian cyst or ovarian mass. There is no visualized left adnexal mass or complex lesion. There is normal arterial and normal venous vascularity. There is no fluid in the cul-de-sac. The pre void volume of the bladder was 822 ml. Polycystic ovary disease: No. US/Transvaginal Non- IMPRESSION: Normal female pelvis. Electronically Signed: Jose Larsen MD at 15:27 EST Tel [phone], Service support ,
--- OUTSIDE RECORDS SUMMARY | 2018-09-20 01:30 | XMS RPT_ITS ---
:1995 Author Organization [place] Support Name Relationship Address Phone SELVIN AQUINO Unavailable [address] + [place] [address] ANAHI AQUINO Unavailable [address] + [place] [address] WC Unavailable [address] + [place] [address] FELIXSELVIN Unavailable [address] + [place] [address] FELIXAICHARY Unavailable [address] + [place] [address] [facility] Unavailable [address] + [place] [address] FELIXSELVIN Unavailable [address] + [place] [address] FELIX ANAHI Unavailable [address] + [place] [address] [facility] Unavailable [address] + [place] [address] FELIXPOLINASELVIN Unavailable [address] + [place] [address] FELIXAICHARY Unavailable [address] + [place] [address] [facility] Unavailable [address] + [place] [address] FELIXPOLINASELVIN Unavailable [address] + [place] [address] FELIX ANAHI Unavailable [address] + [place] [address] [facility] Unavailable [address] + [place] [address] POLINA AQUINOELLE Unavailable [address] + [place] [address] FELIX ANAHI Unavailable [address] + [place] [address] [facility] Unavailable [address] + [place] [address] FELIX SELVIN Unavailable [address] + [place] [address] ANAHI AQUINO Unavailable [address] + [place] [address] [facility] Unavailable [address] + [place] [address] FELIX SELVIN Unavailable [address] + [place] [address] ANAHI AQUINO Unavailable [address] + [place] [address] [facility] Unavailable [address] + [place] [address] FELIX SELVIN Unavailable [address] + [place] [address] FELIXANAHI Unavailable [address] + [place] [address] [facility] Unavailable [address] + [place] [address] POLINA AQUINOELLE Unavailable [address] + [place] [address] FELIXANAHI Unavailable [address] + [place] [address] [facility] Unavailable [address] + [place] [address] SELVIN AQUINO Unavailable [address] + [place] [address] FELIX ANAHI Unavailable [address] + [place] [address] [facility] Unavailable [address] + [place] [address] GERSON MCDERMOTT Unavailable [address] + [place] [address] SELVIN AQUINO Unavailable [address] + [place] [address] [facility] Unavailable [address] + [place] [address] POLINA AQUINOELLE Unavailable [address] + [place] [address] FELIX, ANAHI Unavailable [address] + [place] [address] [facility] Unavailable [address] + [place] [address] Care Team Providers Name Role Phone COOPERRIDER II, LUCI H Referring Unavailable COOPERRIDER II, LUCI H Attending Unavailable COOPERRIDER II, LUCI H Referring Unavailable COOPERRIDER II, LUCI H Referring Unavailable Oberhauser, Ladi L Attending [...] Referring Unavailable AYO JONES Primary Care Unavailable Sagar, Evgeny Attending Unavailable DOCTOR, OUT OF TOWN Referring Unavailable Sagar, Evgeny Attending Unavailable Sagar, Evgeny Referring Unavailable AYO JONES Primary Care Unavailable [place], Mary Attending Unavailable DOCTOR, OUT OF TOWN Referring Unavailable [place], Mary Attending Unavailable AYO JONSE Primary Care Unavailable Narendra, Mary Referring Unavailable Narendra, Mary Attending Unavailable [place], Mary Referring Unavailable AYO JONES Primary Care Unavailable Narendra, Mary Attending Unavailable [place], Mary Referring Unavailable Oberhauser, Ladi Primary Care Unavailable Oberhauser, Ladi Primary Care Unavailable Helene Brown Attending Unavailable Vance Love Attending Unavailable Vance Love Referring Unavailable Oberhauser, Ladi Primary Care Unavailable LEILA, JOSE ANTONIO Primary Care Unavailable Jericho Scanlon Attending Unavailable AYO JONES Attending Unavailable AYO JONES Referring Unavailable AYO JONES Primary Care Unavailable Antonio Alberto Attending Unavailable LEILA, JOSE ANTONIO Referring Unavailable Ungur, Remus Attending Unavailable Primay Care Physicia, No Primary Care Unavailable PROBLEMS PROBLEMS DATE TYPE CONDITION / CODE ATTENDING STATUS SOURCE 07/20/2018 Unknown R10.2 - Pelvic and Narendra, Mary Active [facility] perineal pain / Community R10.2(ICD-10) Hospital Repository 07/06/2018 Unknown Z11.3 - Encounter Mary Mackey Active [place] for screening for Community infections with a Hospital predominantly Repository sexual mode of transmission / Z11.3(ICD-10) 06/28/2018 Unknown R30.0 - Dysuria / Evgeny Keith Active [place] R30.0(ICD-10) [facility] Repository 05/31/2018 Active Myopia, bilateral / NA Active [place] H52.13(ICD-10) [facility] [place] Repository 05/12/2018 Unknown R05 - Cough / Antonio Alberto Active [facility] R05(ICD-10) [facility] Repository 05/12/2018 Unknown J06.9 - Acute upper Antonio Alberto Active [facility] respiratory Community infection, Hospital unspecified / Repository J06.9(ICD-10) 05/12/2018 Unknown J40 - Bronchitis, Antonio Alberto Active [facility] not specified as Community acute or chronic / Hospital J40(ICD-10) Repository 06/17/2018 Unknown Z77.21 - Contact Jericho Scanlon Active [place] with and Community (suspected) Hospital exposure to Repository potentially hazardous body fluids / Z77.21(ICD-10) 03/08/2018 Active Encounter for COOPERRIDER II, Active [place] general adult [facility] examination [place] without abnormal Repository findings / Z00.00(ICD-10) PROCEDURES PROCEDURES No Procedure Records FoundRESULTS RESULTS Observed: 07/23/2018 Status: F Source: [place] CULTURE, NOSE 3:15 PM [facility] HOSPITAL REPOSITORY Gram Stain Gram Stain 1+ Gram positive cocci 1+ White Blood Cells Nasoph. Cult ORGANISM 1: Staphylococcus aureus Amount Growth 3+ Staphylococcus aureus: REACTION Cefoxitin *NF NEG Doxycline <=0.5 S Daptomycin $$ 0.25 S Clindamycin $$ 0.25 S Inducable Clindamycin Resistan NEG Erythromycin $ >=8 R Gentamicin $ <=0.5 S Levofloxacin $ <=0.12 S Linezolid $$$$ 2 S Moxifloxicin *NF <=0.25 S Oxacillin NF <=0.25 S Tigecycline $$$$ <=0.12 S Rifampin $$ <=0.5 S Tetracycline NF >=16 R Trimethoprim/Sulfametho $ <=10 S Vancomycin $ 1 S (NF) indicates non-formulary drug at [facility]. Approval by Infectious Disease Specialist required before non-formulary drugs may be ordered and/or dispensed. * CLSI guidelines does not recommend testing of cephalosporins. This interpretation is deduced from Beta-lactam/penicillin results. Performed By: #### M100.0900 #### [facility] [address] [place], [address] EMERGENCY DEPARTMENT Observed: 07/21/2018 Status: F Source: [place] SUMMARY 2:44 PM REPOSITORY [facility] Medical Records Department [address] [place] [address] Emergency Department Summary 07/21/18 0036 MR#: [id number] Acct: [id number] Name: VIANCA AQUINO Rep #: [id number] : 1995 22 From: Helene Brown MD PCP: Ladi York DO Status: DEP ER - ER Visit Summary Date of Service: 07/21/18 Chief Complaint: Right flank pain History of Present Illness: The patient is a 22 F who reports having nausea and overall just not feeling well for the past couple of days. Tonight while sitting at basketball game she developed right lower back pain that radiated around to the right lower quadrant. She denies urinary symptoms. Patient was recently seen by her FEEDER CATCHER and had a pelvic ultrasound that revealed normal ovaries with no sign of ovarian cyst. Physical Examination: Vital signs are unremarkable. Patient sitting upright in bed no acute distress. Head neck examination is normal. Heart is regular rate and rhythm. Lung sounds clear. Abdomen is soft with mild tenderness in the right lower quadrant. No guarding or rebound. Active bowel sounds are noted throughout. Back examination reveals no CVA tenderness. She has mild tenderness in the right low lumbar paraspinal muscles. Test Results: CBC and chemistry studies are unremarkable. Urinalysis normal. test negative. Emergency Department Course and Treatment: Patient declined anything for pain while here. On repeat examination she is resting comfortably. She now states that this pain has been intermittent for the past several weeks. We discussed risks and benefits of a CT scan and she does wish to obtain imaging. CT flank is obtained that shows no acute findings and no evidence of bowel obstruction. No sign of acute appendicitis. On my review of imaging she does have quite a bit of stool, especially in the ascending colon where she is having pain. She is given a prescription for mag citrate. Treatment Plan: [] Disposition: Discharge Impression: 1. Right lower quadrant pain 2. Constipation This note was generated with [employer] dictation software. It may contain incorrect words, spelling, and punctuation that were not noted in review of the chart prior to signing ED Disposition - Plan for ED Patient: Disposition: Home or Assisted Living Chief Complaint: Flank Pain Referrals: Ladi York DO [Primary Care Provider] - What to do if you have Problems For any increased pain, shortness of breath, bleeding, nausea or vomiting, chest pain, or any unexpected problems, contact your Primary Care Provider. Call [facility] ([phone]) or report to the closest Emergency Room. Call 911 if necessary. 07/21/18 3234 <Electronically signed by Helene Brown MD> Date Helene Brown MD Cosign Signature (If Indicated): Date CC: Ladi York DO ABDOMEN/PELVIS WITHOUT Observed: 07/21/2018 Status: F Source: [place] CONT 12:10 AM REPOSITORY [facility] Imaging Services [address] [place] [address] Abdomen/Pelvis without Cont MR#: [id number] Acct: [id number] Name: VIANCA AQUINO Rep #: [id number] : 1995 F 22 From: Alfredo Alston PCP: Ladi York DO Status: REG ER Study: Abdomen/Pelvis without Cont Date of Exam: 07/21/18 Exam# [id number] Ordering Dr: Helene Brown MD STUDY: CT ABDOMEN AND PELVIS WITHOUT CONTRAST REASON FOR EXAM: Female, 22 years old. Right-sided abdominal pain. RADIATION DOSAGE (If Supplied By Facility): CTDIvol = ( 14.21 ) mGy, DLP = ( 731.26 ) mGycm TECHNIQUE: Transaxial images were obtained from the dome of the diaphragm to the symphysis pubis without oral contrast, and without intravenous contrast. Sagittal and coronal images were reconstructed. Individualized dose optimization techniques were used for this CT. COMPARISON: Pelvic ultrasound July 16, 2018. FINDINGS: The visualized lung bases are unremarkable. The visualized portions of the heart are within normal limits. Normal liver. Normal gallbladder and extrahepatic biliary system. Normal spleen. Normal pancreas. Normal bilateral adrenal glands. Normal right kidney. Normal left kidney. Normal visualized stomach. Multiple loops of small bowel are collapsed limiting evaluation. Normal colon. Appendix not visualized. Grossly appearance of the abdomen does not suggest acute appendicitis. Normal abdominal aorta. Normal inferior vena cava. Normal retroperitoneum. No intra-abdominal free air. Normal urinary bladder. Uterus grossly normal. No adnexal masses seen. Normal abdominal wall. L5-S1 disc space narrowing. CT/Abdomen/Pelvis without Cont IMPRESSION: No acute findings in the abdomen or pelvis. No evidence of bowel obstruction. Appendix not visualized. Electronically Signed: Alfredo Al[place] MD at 1:03 EST , Service support , CC: Helene Brown MD; Ladi York DO Video Network Engineer: Signed CBC W/DIFF, AUTOMATED Collected: 07/20/2018 Status: F Source: [place] 11:35 PM REPOSITORY TYPE CODE TESTS RESULT OUT OF RANGE REFERENCE UNITS LAB L100.1000 4.4-11.0 K/mm3 Normal WBC 9.1 LAB L100.1200 4.2-5.4 M/mm3 Normal RBC 4.20 LAB L100.1300 12.0-15.0 g/dl Normal HGB 12.9 LAB L100.1400 37-47 % Normal HCT 38.1 LAB L100.1500 81-99 fL Normal MCV 90.7 LAB L100.1600 27.0-32.0 pg Normal MCH 30.7 LAB L100.1700 32-36 g/gl Normal MCHC 33.9 LAB L100.1810 11.6-14.6 % Normal RDW CV 12.6 LAB L100.1820 35.1-43.9 fl Normal RDW SD 41.4 LAB L100.1900 150-450 K/mm3 Normal PLT 229 LAB L100.2000 6.2-12.0 fl Normal MPV 10.2 LAB L100.2100 47-70 % Normal NEUT% 69.2 LAB L100.2200 19-41 % Normal LY% 22.6 LAB L100.2300 0-10 % Normal MONO% 7.4 LAB L100.2400 0-5 % Normal EO% 0.4 LAB L100.2500 0-1 % Normal BASO% 0.2 LAB L100.2550 0.0-0.9 % Normal IM GRAN % 0.200 Result Comment: IG% - Immature Granulocytes (promyelocytes, myelocytes and metamyelocytes) > 1% indicates that a LEFT SHIFT is Present. LAB L100.2620 2.0-7.7 X10 3/uL Normal Absolute Neut 6.3 LAB L100.2720 0.83-4.51 X10 3/ul Normal Absolute Lymph 2.06 Performed By: #### L100.0100 #### [facility] [place], [place], [address] URINALYSIS, COMPLETE Collected: 07/20/2018 Status: F Source: [place] 11:35 PM REPOSITORY Order Comment: How was Urine Obtained? CLEAN CATCH TYPE CODE TESTS RESULT OUT OF RANGE REFERENCE UNITS LAB L400.3000 Yellow COLOR Normal Yellow LAB L400.3050 Clear Normal CLARITY Clear LAB L400.3200 Normal mg/dl Normal GLUCOSE, UR Normal LAB L400.3300 Negative mg/dL Normal BILIRUBIN URINE Negative LAB L400.3400 Negative mg/dl Normal KETONE UR Negative LAB L400.3465 1.002-1.030 Normal SP.GR. DIPSTX 1.015 LAB L400.3550 5.0 - 8.0 pH UR Normal 6.0 LAB L400.3600 Negative mg/dl PROT Normal DIPSTX Negative LAB L400.3700 Normal mg/dl Normal UROBILI Normal LAB L400.3750 Negative Normal NITRITE UR Negative LAB L400.3780 Negative /ul Normal OCCULT BLOOD-UR Negative LAB L400.3800 Negative /ul LEUK Normal ESTERASE Negative LAB L400.4050 0-5 /hpf WBC 0 Normal SEEN LAB L400.4100 0-5 /hpf 0 Normal RBC-UA SEEN LAB L400.4150 5-10 /hpf SQUAM Normal EPI 0-5 SEEN LAB L400.4300 None Seen /hpf 0 Normal BACTERIA SEEN LAB L400.4350 <or=2+ /hpf 0 Normal MUCUS, URINE SEEN Performed By: #### L400.0001, L700.6800 #### [facility] [address] [facility]. [place], [place], [address] ,SERUM,HCG QUALI. Collected: Status: F Source: [place] 07/20/2018 11:35 PM REPOSITORY TYPE CODE TESTS RESULT OUT OF REFERENCE UNITS RANGE LAB L700.7000 0-9 Nonpreg Negative Normal HCGSQUAL NEGATIVE LAB L700.6700 =>Qualitative mIU/mL Normal HCG Qual < 1 triggr Performed By: #### L400.0001, L700.6800 #### [facility] [address] [facility] [place], [place], [address] BASIC METABOLIC Collected: 07/20/2018 Status: F Source: [place] PROFILE (BMP) 11:35 PM REPOSITORY TYPE CODE TESTS RESULT OUT OF RANGE REFERENCE UNITS LAB L501.0100 74-106 mg/dL Normal GLU 86 Result Comment: Please note revised GLUCOSE reference range effective 2017. LAB L501.1000 7-18 mg/dL Low BUN 5 LAB L501.1100 0.55-1.02 mg/dL Normal CREAT,SERUM 0.70 Result Comment: The validity of the calculated GFR AND GFRAA in patients over 70 years has not been determined. Clinical correlation is essential. LAB L501.1110 >60 mL/min Normal EST GFR 111 Result Comment: Non- GFR Calc LAB L501.1115 >60 mL/min Normal EST GFR - AA 135 Result Comment: GFR Calc LAB L501.1255 ml/min Normal Estimated CRCL 136.32 LAB L501.1300 10-20 RATIO Low BUN/CRE 7.2 LAB L501.2200 8.5-10 mg/dL .1 CA Normal 8.7 LAB L501.5300 136-14 mmol/L 5 NA Normal 140 LAB L501.5600 3.5-5. mmol/L 1 K Normal 3.6 LAB L501.5900 98-107 mmol/L CL Normal 107 LAB L501.6100 21.0-3 mmol/L 2.0 CO2 Normal 27.0 LAB L501.6200 5-15 GAP Normal 6 Performed By: #### L500.2500 #### [facility] [address] [facility] [place], [address] TRANSVAGINAL Observed: 07/16/2018 Status: F Source: [place] NON- 12:12 PM REPOSITORY [facility] Imaging Services [address] [place] [address] Transvaginal Non- MR#: [id number] Acct: [id number] Name: VIANCA AQUINO Rep #: [id number] : 1995 F 22 From: Jose Larsen MD PCP: OUT OF TOWN DOCTOR Status: REG CLI Study: Transvaginal Non- Date of Exam: 07/16/18 Exam# [id number] Ordering Dr: Mary Mackey SHIELD INSTALLERBeatriz STUDY: ULTRASOUND OF THE FEMALE PELVIS - COMPLETE REASON FOR EXAM: Female, 22 years old. Pelvic pain. LMP: July 05, 2018. TECHNIQUE: Transabdominal and Transvaginal TECHNICAL QUALITY: Adequate. COMPARISON: None. FINDINGS: The uterus is anteverted and is in a midline position. The uterus measures 6.9 cm x 4 cm x 3.0 cm. Normal uterine cervix. The endometrium measures 2.2 mm in thickness, and is hyperechoic. There is no demonstrated endometrial mass. There is no demonstrated myometrial mass. I.U.D. - The patient does not have an I.U.D. . Trace amount of fluid is seen in the cervix. The right ovary is visualized. The right ovary measures 2.8 cm x 2.2 cm x 1.4 cm. There is no right ovarian cyst or ovarian mass. There is no visualized right adnexal mass or complex lesion. There is normal arterial and normal venous vascularity. The left ovary is visualized. The left ovary measures 2.2 cm x 2.5 cm x 1.4 cm. There is no left ovarian cyst or ovarian mass. There is no visualized left adnexal mass or complex lesion. There is normal arterial and normal venous vascularity. There is no fluid in the cul-de-sac. The pre void volume of the bladder was 822 ml. Polycystic ovary disease: No. US/Transvaginal Non- IMPRESSION: Normal female pelvis. Electronically Signed: Jose Larsen MD at 15:27 EST Tel [phone], Service support , CC: ASHLIE Mackey; OUT OF [facility] DOCTOR Video Network Engineer: Signed PELVIC (NON ) Observed: 07/16/2018 Status: F Source: [place] 12:12 PM REPOSITORY [facility] Imaging Services [address] [place] [address] Pelvic (Non ) MR#: [id number] Acct: [id number] Name: VIANCA AQUINO Rep #: [id number] : 1995 F 22 From: Jose Larsne MD PCP: OUT OF TOWN DOCTOR Status: REG CLI Study: Pelvic (Non ) Date of Exam: 07/16/18 Exam# [id number] Ordering Dr: Mary Mackey STUDY: ULTRASOUND OF THE FEMALE PELVIS - COMPLETE REASON FOR EXAM: Female, 22 years old. Pelvic pain. LMP: July 05, 2018. TECHNIQUE: Transabdominal and Transvaginal TECHNICAL QUALITY: Adequate. COMPARISON: None. FINDINGS: The uterus is anteverted and is in a midline position. The uterus measures 6.9 cm x 4 cm x 3.0 cm. Normal uterine cervix. The endometrium measures 2.2 mm in thickness, and is hyperechoic. There is no demonstrated endometrial mass. There is no demonstrated myometrial mass. I.U.D. - The patient does not have an I.U.D. . Trace amount of fluid is seen in the cervix. The right ovary is visualized. The right ovary measures 2.8 cm x 2.2 cm x 1.4 cm. There is no right ovarian cyst or ovarian mass. There is no visualized right adnexal mass or complex lesion. There is normal arterial and normal venous vascularity. The left ovary is visualized. The left ovary measures 2.2 cm x 2.5 cm x 1.4 cm. There is no left ovarian cyst or ovarian mass. There is no visualized left adnexal mass or complex lesion. There is normal arterial and normal venous vascularity. There is no fluid in the cul-de-sac. The pre void volume of the bladder was 822 ml. Polycystic ovary disease: No. US/Pelvic (Non ) IMPRESSION: Normal female pelvis. Electronically Signed: Jose Larsen MD at 15:27 EST Tel [phone], Service support , CC: ASHLIE Mackey; OUT OF TOWN DOCTOR Video Network Engineer: Signed HIV - [facility] Collected: 07/06/2018 Status: F Source: [place] 6:56 AM REPOSITORY TYPE CODE TESTS RESULT OUT OF RANGE REFERENCE UNITS LAB L3890.6005 Nonreactive Normal HIV - [facility] Non-Reactive Performed By: #### L3890.6005 #### [facility] [address] [place], [place], [address] HSV 1 AND 2 IGG Collected: 07/06/2018 Status: F Source: [place] 6:56 AM REPOSITORY TYPE CODE TESTS RESULT OUT OF RANGE REFERENCE UNITS LAB L3400.1620 0.00-0.90 index High HSV 1 IgG 9.89 Result Comment: Negative <0.91 Equivocal 0.91 - 1.09 Positive >1.09 Note: Negative indicates no antibodies detected to HSV-1. Equivocal may suggest early infection. If clinically appropriate, retest at later date. Positive indicates antibodies detected to HSV-1. LAB L3400.1630 0.00-0.90 index Normal < HSV 2 IgG 0.91 Result Comment: Negative <0.91 Equivocal 0.91 - 1.09 Positive >1.09 Note: Negative indicates no antibodies detected to HSV-2. Equivocal may suggest early infection. If clinically appropriate, retest at later date. Positive indicates antibodies detected to HSV-2. Performed at: - [facility] [id number] Liner Roll Changer: Phuong Gomez MD, Phone: [phone] Performed at: [facility] [id number] Liner Roll Changer: Jose Cruz Brown PhD, Phone: [phone] Performed By: #### L3400.1610, L7000.7000 #### [facility] (refer to report for specific site) refer to report for address and phone number HEPATITIS C,RNA PCR Collected: 07/06/2018 Status: F Source: [place] VIRAL LOAD 6:56 AM REPOSITORY TYPE CODE TESTS RESULT OUT OF RANGE REFERENCE UNITS LAB L7000.7100 . IU/mL HCV Normal HCV Not Detected QT PCR LAB L7000.7350 . Test Normal HCV not performed log 10 LAB L7000.7500 . Normal TEST Comment INFO: Result Comment: The quantitative range of this assay is 15 IU/mL to 100 million IU/mL. Performed By: #### L3400.1610, L7000.7000 #### [facility] (refer to report for specific site) refer to report for address and phone number RAPID PLASMIN REAGIN Collected: 07/06/2018 Status: F Source: [place] (RPR) 6:56 AM REPOSITORY TYPE CODE TESTS RESULT OUT OF REFERENCE UNITS RANGE LAB L700.5000 NONREACTIVE NONREACTIVE Normal RPR Performed By: #### L700.5000 #### [facility] [address] [place], [address] CT/NG [facility] BY PCR Collected: 07/05/2018 Status: F Source: [place] 6:06 PM REPOSITORY Order Comment: Comments: urine TYPE CODE TESTS RESULT OUT OF RANGE REFERENCE UNITS LAB L8200.2100 Negative Normal Chlam Negative Trac PCR LAB L8200.2200 Negative Normal NG by Negative PCR Performed By: #### L8200.2000 #### [facility] [address] [place], [address] FEEDER CATCHER OFFICE VISIT Observed: 07/05/2018 Status: F Source: [place] REPORT 3:34 PM REPOSITORY [facility] [address] [place] [address] OFFICE VISIT Date of Service: 07/05/18 MR#: [id number] Acct: [id number] Name: VIANCA AQUINO Rep #: [id number] : 1995 Provider: ASHLIE Mackey Age/Sex: 22/F Location: [facility] Status: Signed Intake Vital Signs07/05/18 Height 5 ft 10 in 07/05/18 Weight: 237 lb 07/05/18 Body Mass Index (BMI) 34.0 07/05/18 Blood Pressure 124/84 H Intake Visit Reasons: OVARIAN CYST? OVARIAN PAIN, PAIN WITH INTERCOURSE Analytical Research Program Manager Required: No Is patient in pain?: Yes Pain scale (1-10): 2 Allergies No Known Allergies Allergy (Verified 07/05/18 15:10) Medications bupropion HCl SR 100 mg tablet,12 hr sustained-release 100 mg PO DAILY 07/05/18 [History Confirmed 07/05/18] Is last menstrual period known: Yes Last Menstral Period: 07/05/17 Post menopausal: No Patient : No : No PFSH Medical History Anxiety (Chronic) History of wisdom tooth extraction (Acute) Surgical History History of tonsillectomy (Acute) Family History Grandfather Stomach cancer Other Hypertension Social History Smoking Status: Never smoker alcohol intake: current alcohol intake frequency: holidays/special occasions only Alcohol type: hard liquor substance use type: does not use caffeine: Yes what type of physical activity do you participate in: none seatbelt use: always do you feel safe at home: Yes additional social history: Single- Works in Environmental Services at [employer] HPI OVARIAN CYST? OVARIAN PAIN, PAIN WITH INTERCOURSE: Details: VIANCA AQUINO is a 22 year old who presents for new patient discussion of pelvic pain. States is bilaterally low pelvis almost into groin. Sometimes goes around hips and back. Stopped OCP this summer due to increased acne. Would consider restarting. Requesting STD screen but full menses today and declines exam. Denies vaginal symptoms Female Reproductive History Last Menstral Period: 07/05/17 Questions: Metorrhagia: No, Sexually active: Yes, Dyspareunia: Yes (one episode), PCB: No Pregancy History 0 Elective abortions Hx Para Spontaneous abortions ROS Const Constitutional: Denies chills, fatigue, fever(s) or weight gain GI GI: Reports bloating; denies abdominal pain or change in bowel habits : Reports pelvic pain; denies vaginal odor, vaginal itching or vaginal discharge Exam Const General: cooperative, no acute distress Nutritional Appearance: well nourished Orientation: oriented x3 Assessment AND Plan Problems 1. Pelvic pain R10.2 2. Screen for STD (sexually transmitted disease) Z11.3 Plan Urine GCC, HIV, RPR, Hep C, HSV IGG 1 and 2-call only if positive Ultrasound. Consider new OCP type that would suppress ovaries and help with acne. 20 min FTF counseling with patient. Orders Orders: Coding Level of Care Code Off vis,new,level 3 Diagnoses Pelvic pain R10.2 Screen for STD (sexually transmitted disease) Z11.3 07/05/18 1534 <Electronically signed by Mary MEAD> Date Mary TORRESC Cosigner Signature: Date (if applicable) CC: URGENT CARE VISIT Observed: 06/28/2018 Status: F Source: MARCELO REPORT 4:05 PM REPOSITORY [facility] [address] [place] [address] 6 [place] [address] OFFICE VISIT Date of Service: 06/28/18 MR#: [id number] Acct: [id number] Name: VIANCA AQUINO Rep #: [id number] : 1995 Provider: Evgeny ALBA Age/Sex: 22/F Location: [facility] Status: Signed Intake Vital Signs06/28/18 Body Mass Index (BMI) 32.3 06/28/18 Height 5 ft 10 in Intake Visit Reasons: LOWER BACK AND HIP AND LOWER ABD PAIN/UTI? Chief Complaint: uti Analytical Research Program Manager Required: No Accompanied by: Self Is patient in pain?: Yes Allergies No Known Allergies Allergy (Verified 06/28/18 11:06) [facility] Medical History History of wisdom tooth extraction (Acute) Surgical History History of tonsillectomy (Acute) Social History Smoking Status: Never smoker alcohol intake: current alcohol intake frequency: holidays/special occasions only Alcohol type: hard liquor HPI HPI Chief Complaint: uti Details: VIANCA AQUINO, is a 22 F who presents to the office today for concern for possible UTI. Patient states she has had lower abdominal discomfort/pelvic pressure. She states that she does have an appointment with her FEEDER CATCHER coming up the next several days however wants to be tested for UTI to rule it out. She states that she has had this lower abdominal/pelvic pain for the past several days as well as several episodes of painful intercourse which is why she made her appointment with her FEEDER CATCHER however since she could not get in today she came here. She denies any she states her last normal menstrual period was 06/12/2018 and also reports that she has been normal for the past several cycles after stopping her control. She also states having taken a test just prior to coming to the office today which was negative. Vaginal discharge, dryness or irritation. No unprotected sexual encounters recently. She denies dysuria, hematuria or bowel/bladder loss of control. No fever, chills, sweats. No nausea, vomiting, diarrhea. No other associated symptoms or alleviating/aggravating factors. ROS Const Constitutional: No body ache, chills or fever(s) Resp Respiratory: No shortness of breath Cardio Cardiology: No lightheadedness, palpitations or irregular heart rhythm Gastro GI: No abdominal pain Genitourinary-Female: Positive for pelvic pain and painful intercourse; no burning urination, painful urination, urinary frequency, blood in urine, abnormal periods, light periods, absent period, painful periods, abnormal vaginal bleeding or heavy periods Neuro Neurology: No confusion or behavioral changes Psych Psychiatric: No confusion, No behavioral changes Exam Const General: cooperative, healthy appearing Resp Effort AND Inspection: normal respiratory effort Auscultation: Bilateral: Clear to Auscultation Cardio Rate: regular rate Rhythm: regular rhythm GI Inspection: normal to inspection Auscultation: normal bowel sounds Palpation: soft, no hepatosplenomegaly General: No CVA tenderness Psych Appearance: grossly normal Mental Status: mental status grossly normal Results BMSUA Office Urine Color YELLOW Last Edit by Judy Zheng on 06/28/18 11:34 Office Urine Clarity Clear Last Edit by Judy Zheng on 06/28/18 11:34 Assessment AND Plan Problems 1. Painful sexual intercourse Status Acute Plan Patient advised to continue with her f appointment with FEEDER CATCHER for further assessment and treatment as she is negative for UTI today. Her urine culture will still be sent to the hospital for culture and sensitivity and she will be advised of any positive findings. Patient advised of potential red flags and when appropriate to report to the ED. Patient verbalized understanding and agreement with all the above. Orders Orders: Coding Level of Care Code Off vis,est,level 3 Diagnoses Painful sexual intercourse 06/28/18 8569 <Electronically signed by Evgeny ALBA> Date Evgeny ALBA Cosigner Signature: Date (if applicable) CC: URINALYSIS, COMPLETE Collected: 06/28/2018 Status: F Source: MARCELO 3:11 PM REPOSITORY Order Comment: How was Urine Obtained? CLEAN CATCH TYPE CODE TESTS RESULT OUT OF RANGE REFERENCE UNITS LAB L400.3000 Yellow COLOR Normal Yellow LAB L400.3050 Clear Normal CLARITY Clear LAB L400.3200 Normal mg/dl Normal GLUCOSE, UR Normal LAB L400.3300 Negative mg/dL Normal BILIRUBIN URINE Negative LAB L400.3400 Negative mg/dl Normal KETONE UR Negative LAB L400.3465 1.002-1.030 Normal SP.GR. DIPSTX 1.005 LAB L400.3550 5.0 - 8.0 pH UR Normal 7.0 LAB L400.3600 Negative mg/dl PROT Normal DIPSTX Negative LAB L400.3700 Normal mg/dl Normal UROBILI Normal LAB L400.3750 Negative Normal NITRITE UR Negative LAB L400.3780 Negative /ul Normal OCCULT BLOOD-UR Negative LAB L400.3800 Negative /ul LEUK Normal ESTERASE Negative LAB L400.4050 0-5 /hpf WBC 0 Normal SEEN LAB L400.4100 0-5 /hpf 0 Normal RBC-UA SEEN LAB L400.4150 5-10 /hpf SQUAM Normal EPI 0-5 SEEN LAB L400.4300 None Seen /hpf 0 Normal BACTERIA SEEN LAB L400.4350 <or=2+ /hpf 0 Normal MUCUS, URINE SEEN Performed By: #### L400.0001 #### [facility] [address] [place], [place], [address] Observed: 06/28/2018 Status: F Source: MARCELO CULTURE, URINE 3:11 PM REPOSITORY Urine Culture Culture exhibits no growth. Performed By: #### M100.0650 #### [facility] [address] [place], [place], [address] HEPATITIS C,RNA PCR Collected: 06/11/2018 Status: F Source: MARCELO VIRAL LOAD 7:07 AM REPOSITORY TYPE CODE TESTS RESULT OUT OF RANGE REFERENCE UNITS LAB L7000.7100 . IU/mL HCV Normal HCV Not Detected QT PCR LAB L7000.7350 . Test Normal HCV not performed log 10 LAB L7000.7500 . Normal TEST Comment INFO: Result Comment: The quantitative range of this assay is 15 IU/mL to 100 million IU/mL. Performed at: - [facility] [id number] Liner Roll Changer: Phuong Gomez MD, Phone: [phone] Performed By: #### L7000.7000 #### [facility] (refer to report for specific site) refer to report for address and phone number HIV - [facility] Collected: 06/05/2018 Status: F Source: [place] 11:32 AM REPOSITORY TYPE CODE TESTS RESULT OUT OF RANGE REFERENCE UNITS LAB L3890.6005 Nonreactive Normal HIV - [facility] Non-Reactive Performed By: #### L3890.6005 #### [facility] [address] [place], [place], [address] HEPATITIS ABC PROFILE Collected: 06/05/2018 Status: F Source: [place] 11:32 AM REPOSITORY TYPE CODE TESTS RESULT OUT OF RANGE REFERENCE UNITS LAB L3100.0200 Negative Normal HEP A Negative IgM 6734 LAB L3100.0300 Negative Normal HEP A Negative AB,T.6726 LAB L3100.0400 Negative Normal HB Negative SURF AG LAB L3100.0440 Negative Normal HB Negative CORE [id number] LAB L3100.0460 Negative Normal HEP B Negative [...] to indicate HCV infection. Performed at: - [facility] [id number] Liner Roll Changer: Jose Cruz Brown PhD, Phone: [phone] Performed By: #### L3000.0700 #### [facility] (refer to report for specific site) refer to report for address and phone number DISCHARGE INSTRUCTION Observed: 05/25/2018 Status: F Source: MARCELO 9:02 AM REPOSITORY [facility] Medical Records Department [address] [place] [address] Discharge Instruction 05/25/18 09 MR#: [id number] Acct: [id number] Name: FELIXVIANCA AYLA Rep #: [id number] : 1995 From: Shonda Reyes DO PCP: [...] your Primary Care Provider. Call [facility] ([phone]) or report to the closest Emergency Room. Call 911 if necessary. 05/25/18901 <Electronically signed by Shonda Reyes DO> Date Shonda Reyes DO Cosigner Signature (If Indicated): Date CC: No Primary Care Physician EMERGENCY DEPARTMENT Observed: 05/25/2018 Status: F Source: MARCELO SUMMARY 9:00 AM REPOSITORY [facility] Medical Records Department [address] [place] [address] Emergency Department Summary 05/25/18 0857 MR#: [id number] Acct: [id number] Name: FELIXVIANCA Rep #: [id number] : 1995 From: Shonda Reyes DO PCP: Maykel Physician No Primary Status: REG ER - ER [...] Impression: [UTI] This note was generated with [employer] software. It may contain incorrect words, spelling, [...] your Primary Care Provider. Call [facility] ([phone]) or report to the closest Emergency Room. Call 911 if necessary. 05/25/18 0900 <Electronically signed by Shonda Reyes DO> Date Shonda Reyes DO Cosigner Signature (If Indicated): Date CC: No Primary Care Physician URINALYSIS, COMPLETE Collected: 05/25/2018 Status: F Source: MARCELO 7:45 AM REPOSITORY Order Comment: How was Urine Obtained? [...] 0 SEEN Performed By: #### L400.0001 #### [facility] [address] [place], [place], [address] Observed: 05/25/2018 Status: F Source: MARCELO CULTURE, URINE 7:45 AM REPOSITORY Order Date: 05/25/18 Has pt arrived? Y Urine Culture ORGANISM 1: Mixed Gram Pos AND Gram Neg Org [place] Count <1000 MIX CULTURE Mixed contaminants. Submit a new specimen if indicated. Performed By: #### M100.0650 #### [facility] [address] [place], [place], [address] URGENT CARE VISIT Observed: 05/12/2018 Status: F Source: MARCELO REPORT 12:56 PM RE[facility]ITORY [facility] [address] [place] [address] [address] [place], [place] [address] OFFICE VISIT Date of Service: 05/12/18 MR#: [id number] Acct: [id number] Name: VIANCA AQUINO Rep #: [id number] : 1995 Provider: Antonio ALBA Age/Sex: 22/F Location: [facility] Status: Signed Intake Vital Signs05/12/18 Height 5 ft 10 in 05/12/18 Weight: 230 lb Intake Visit Reasons: SORE THROAT, COUGH, HEAD CONGESTION Chief Complaint: Dry cough, body aches Analytical Research Program Manager Required: No Accompanied by: None Allergies No [...] her probable infection. She notes taking no hcew-kjs-eonxekn products to assist with symptoms. She notes [...] the above. This note was generated with [employer] dictation software. It may contain incorrect words, spelling, and punctuation that were not noted in checking the note before signing. Orders Orders: Medications New: Coding Level of Care Code Off vis,new,level 3 Diagnoses URI (upper respiratory infection) J06.9 Bronchitis J40 05/12/18 1256 <Electronically signed by Antonio ALBA> Date Antonio ALBA Cosign Signature: Date (if applicable) CC: EMERGENCY DEPARTMENT Observed: 03/17/2018 Status: F Source: [place] SUMMARY 2:35 AM REPOSITORY [facility] Medical Records Department [address] [place] [address] Emergency Department Summary 03/16/18 1702 MR#: [id number] Acct: [id number] Name: VIANCA AQUINO Rep #: [id number] : 1995 22 From: Jericho Scanlon MD [...] was drawn, patient will follow up with [facility]. Disposition: Discharge Impression: 1. Occupational exposure This note was generated with [employer] software. It may contain incorrect words, spelling, [...] your Primary Care Provider. Call [facility] ([phone]) or report to the closest Emergency Room. Call 911 if necessary. 03/17/18 0235 <Electronically signed by Jericho Scanlon MD> Date Jericho Scanlon MD Cosigner Signature (If Indicated): Date CC: Jose Antonio Aguilar MD HIV - [facility] Collected: 03/16/2018 Status: F Source: MARCELO 5:40 PM REPOSITORY Order Comment: Has pt arrived? Y TYPE CODE TESTS RESULT OUT OF RANGE REFERENCE UNITS LAB L3890.6005 Nonreactive Normal HIV - [facility] Non-Reactive Performed By: #### L3890.6005 #### [facility] [place], [address] HEPATITIS B SURFACE Collected: 03/16/2018 Status: F Source: MARCELO AG 5:40 PM REPOSITORY Order Comment: Has pt arrived? Y TYPE CODE TESTS RESULT OUT OF RANGE REFERENCE UNITS LAB L3100.0400 Negative Normal HB Negative SURF AG Result Comment: Performed at: - [facility] [address] [id number] Liner Roll Changer: Jose Cruz Brown PhD, Phone: [phone] Performed By: #### L3100.0390, L3100.8890, L3100.8905 #### [facility] (refer to report for specific site) refer to report for address and phone number HEP B SURFACE Collected: 03/16/2018 Status: F Source: MARCELO ANTIBODIES EMP 5:40 PM REPOSITORY Order Comment: Has pt arrived? Y [...] C ANTIBODIES Collected: 03/16/2018 Status: F Source: [place] 5:40 PM REPOSITORY Order Comment: Has pt arrived? Y TYPE CODE TESTS RESULT OUT OF RANGE REFERENCE UNITS LAB L3100.0650 0.0-0.9 s/co ratio Normal HEP C AB <0.1 Result Comment: Negative: < 0.8 Indeterminate: 0.8 - 0.9 Positive: > 0.9 The CDC recommends that a positive HCV antibody result be followed up with a HCV Nucleic Acid Amplification test (761745). Performed By: #### L3100.0390, L3100.0537, L3100.0625 #### [facility] (refer to report for specific site) refer to report for address and phone number PROGRESS Observed: 03/08/2018 Status: COMPLETED Source: [place] 10:36 AM [facility] REPOSITORY O ID: [id number] Author: Luci Gonzales II Service: (none) Author Type: FIELD MARKETING TEAM LEADER Type: Progress Notes Filed: 03/08/2018 10:40 AM [...] about the findings, diagnosis, and treatment options. Luci Gonzales, II, OD CBC W/ AUTO DIFF Collected: 09/25/2017 Status: F Source: [place] 12:35 [facility] REPOSITORY TYPE CODE TESTS RESULT OUT OF RANGE REFERENCE UNITS LAB 82167367(L 3.6-11.0 E3/mcL OINC) Normal WBC 5.7 LAB 55971697(L 3.90-5.40 E6/mcL OINC) Normal RBC 4.33 LAB 41894320(L 12.0-16.0 G/DL OINC) Normal Hgb 13.2 LAB 40619113(L 36.0-48.0 % OINC) Normal Hct 38.7 LAB 51939337(L 11.5-14.5 % OINC) Normal RDW 12.7 LAB 77401794(L 27.0-31.0 pg OINC) Normal MCH 30.5 LAB 62707174(L 33.0-37.0 G/DL OINC) Normal MCHC 34.2 LAB 23046843(L 78.0-100.0 fL OINC) Normal MCV 89.3 LAB 44554054(L 7.4-11.0 fL OINC) Normal MPV 8.7 LAB 01202135(L 130-400 E3/mcL OINC) Normal Platelet 206 Performed By: #### [id number] #### DESEAN [employer] [facility] [place] [address] AUTO DIFF Collected: 09/25/2017 Status: F Source: [place] 12:35 [facility] REPOSITORY Order Comment: Order Added by Discern Expert. TYPE CODE TESTS RESULT OUT OF RANGE REFERENCE UNITS LAB 07322931(L 37.0-75.0 % OINC) Normal Neutro Auto 64.0 LAB 28596582(L 20.0-55.0 % OINC) Normal Lymph Auto 24.9 LAB 54841442(L 0.0-10.0 % OINC) Normal Haralson Auto 9.1 LAB 70265321(L 0.0-11.0 % OINC) Normal Eos Auto 1.4 LAB 57031988(L 0.0-2.0 % OINC) Normal Basophil Auto 0.6 LAB 61586492(L 1.4-6.5 E3/mcL OINC) Normal Neutro 3.7 Absolute LAB 38957702(L 1.2-3.4 E3/mcL OINC) Normal Lymph Absolute 1.4 LAB 95617130(L 0.0-0.7 E3/mcL OINC) Normal Haralson Absolute 0.5 LAB 81355642(L 0.0-0.7 E3/mcL OINC) Normal Eos Absolute 0.1 LAB 36488182(L 0.0-0.2 E3/mcL OINC) Normal Basophil 0.0 Absolute Performed By: #### [id number] #### DESEAN Webb [address] [place] [address] CMP Collected: 09/25/2017 Status: F Source: BAHA[place] 12:35 PM [facility] REPOSITORY TYPE CODE TESTS RESULT OUT OF RANGE REFERENCE UNITS LAB 73780613(L 70-99 mg/dL OINC) Glucose Normal Lvl 84 LAB 69203868(L 8.4-10.2 mg/dL OINC) Calcium Normal Lvl 9.1 LAB 32878297(L 136-145 mEq/L OINC) Sodium Normal Lvl 138 LAB 08217934(L 3.5-5.1 mEq/L OINC) Normal Potassium Lvl 4.5 LAB 29781429(L 98-107 mEq/L OINC) Chloride Normal 106 LAB 80403083(L 24.0-30.0 mEq/L OINC) CO2 Normal 25.3 LAB 83974926(L 7-18 mg/dL OINC) BUN Normal 9 LAB 5163804(LO 0.6-1.3 mg/dL INC) Normal Creatinine 0.7 LAB 90737738(L 42-121 Int._Unit/ OINC) L Alk Phos Normal 60 LAB 20429141(L 0.2-1.0 mg/dL OINC) Bili Normal Total 0.5 LAB 89268033(L 3.2-5.0 G/DL OINC) Albumin Normal Lvl 4.0 LAB 00733415(L 6.4-8.3 G/DL OINC) Total Normal Protein 7.5 LAB 43405547(L 10-40 Int._Unit/ OINC) L ALT Normal 20 LAB 64071938(L 10-42 Int._Unit/ OINC) L AST Normal 21 LAB 31692053(L 5.4-30.0 ratio OINC) Normal BUN/Creat Ratio 12.9 LAB 26309220(L 2.0-4.0 G/DL OINC) Globulin Normal 3.5 LAB 92565954(L 1.1-1.9 ratio OINC) A/G Normal Ratio 1.1 Performed By: #### [id number] #### DESEAN [employer] [facility] [place] [address] EGFR Collected: 09/25/2017 Status: F Source: [place] 12:35 [facility] REPOSITORY Order Comment: Order added by Discern Expert. TYPE CODE TESTS RESULT OUT OF RANGE REFERENCE UNITS LAB 58462794(LO mL/min/1.73 INC) m2 Normal eGFR >60 LAB 74993709(LO mL/min/1.73 INC) m2 Normal eGFR AA >60 Performed By: #### [id number] #### DESEAN [employer] [facility] [place] [address] LIPID PROFILE Collected: 09/25/2017 Status: F Source: [place] 12:35 [facility] REPOSITORY TYPE CODE TESTS RESULT OUT OF RANGE REFERENCE UNITS LAB 59338839(LO 50-200 mg/dL INC) Normal Chol 130 Result Comment: TOTAL CHOLEESTEROL: <200 NORMAL 200 - 239 BORDERLINE HIGH >240 HIGH LAB 97696013(LOINC) >=41 mg/dL Normal HDL 44 LAB 32904630(LOINC) 0-130 mg/dL Normal LDL 76 Result Comment: <100 OPTIMAL 100-129 NEAR / ABOVE OPTIMAL 130-159 BORDERLINE HIGH 160-189 HIGH >190 VERY HIGH CALC LDL NOT VALID WHEN TRIGLYCERIDE IS >400 MG/DL LAB 23760996(LOINC) 35-150 mg/dL Normal Trig 50 Result Comment: <150 NORMAL 150-199 BORDERLINE HIGH 200-499 HIGH >500 VERY HIGH LAB 08069044(LOINC) Normal VLDL 10 Performed By: #### [id number] #### DESEAN RemIdentified [facility] [place] [address] TSH Collected: 09/25/2017 Status: F Source: [place] 12:35 PM [facility] REPOSITORY TYPE CODE TESTS RESULT OUT OF RANGE REFERENCE UNITS LAB 09012021(LO 0.30-5.60 mIU/m INC) Normal TSH 1.28 Performed By: #### 4083227 #### DESEAN [employer] [facility] [place] [address] ALLERGIES ALLERGIES DATE TYPE / CODE NAME / CODE REACTION SEVERITY SOURCE 07/20/2018 Drug No Known Unknown [facility] Allergy/416 Allergies/B76464 Hospital 661401(SNOM 0388(RXNORM) Repository ED CT) Drug NO KNOWN [facility] Class/34668 ALLERGIES [facility] 1003(SNOMED Repository CT) Drug/516199 No Known Mandaeism 003(SNOMED Allergies [facility] CT) System Repository ENCOUNTERS ENCOUNTERS ADMIT/DISCHARGE ACCOUNT NUMBER ADMITTING ENCOUNTER LOCATION SOURCE CLASS 07/23/2018 [id number] Ambulatory [facility] ding:LABSPEC Repository 07/20/2018/07/21/19 [id number] Emergency [address] ding:ED Repository 07/16/2018 [id number] Ambulatory [facility] ding:OPUS Repository 07/06/2018 [id number] Ambulatory [facility] ding:LAB Repository 07/05/2018 [id number] Ambulatory [facility] ding:LABSPEC Repository 07/05/2018/07/05/19 [id number] Ambulatory BMSBuilding: [place] [facility] Repository 06/28/2018 [id number] Ambulatory [facility] ding:LABSPEC Repository 06/28/2018/06/28/20 [id number] Ambulatory BMSBuilding: [place] 18 [facility] Repository 06/11/2018 [id number] Ambulatory [facility] ding:LAB Repository 06/10/2018/06/10/20 [id number] [place], Ambulatory [facility] [address] eBuilding:[facility] oom: Room 1 Repository 06/05/2018 [id number] Ambulatory [facility] ding:LAB Repository 05/31/2018/06/04/20 [id number] Ambulatory [address] Repository 05/25/2018/05/25/20 [id number] Emergency [address] ding:ED Repository 05/12/2018/05/12/20 [id number] Ambulatory BMSBuilding: [address] Repository 03/24/2018/03/24/20 [id number] [place], Ambulatory [facility] [address] eBuilding:[facility] oom: Room 1 Repository 03/16/2018/03/16/20 [id number] Emergency [address] ding:ED Repository 03/08/2018/03/09/20 [id number] Ambulatory [address] Repository 02/11/2018/02/13/20 [id number] Ambulatory [address] Repository 09/25/2017/09/26/19 [id number] [place], Ambulatory [facility] [address] [facility] ding:.[facility] Repository 09/25/2017/09/26/19 [id number] [place], Ambulatory [facility] [address] eBuilding:[facility] oom: Room 2 Repository PAYERS PAYERS ENCOUNTER GUARANTOR PAYER SUBSCRIBER SOURCE 07/23/2018 VIANCA MONTESINOS: [place] [id number] [facility] Insurance:[place]ng [place] Number: [facility] [address]Nrt: (859) [id number] Repository [phone] () Date:5977-04-16BC [id number] [place] [address]KF: 07/23/2018 Secondary NOT GIVENUNK [place] Insurance:SELF PAY [facility]: Effective Repository Date:2018-07-23 07/20/2018 VIANCA Marti Primary ESHA E DAVIDYDOB: [place] [id number] [address] Insurance:AETNAPolicy [id number] [place] Number[facility] Hospital [id number]: (419) [id number] Repository [phone] () Date:1217-32-01VP [address] [address]GS: 07/20/2018 Secondary NOT GIVENUNK [place] Insurance:SELF PAY [facility] Number: Effective Repository Date:2018-07-20 07/16/2018 VIANCA Marti Primary ESHA E DAVIDYDOB: [place] [id number] [place] Insurance:AETNAPolicy [id number] [place] Number: Hospital [id number]: (419) [id number] Repository [phone] () Date:1062-72-54AJ [address] [address]YW: 07/16/2018 Secondary NOT GIVENUNK [place] Insurance:SELF PAY Community [facility] Number: Effective Repository Date:2018-07-05 07/06/2018 VIANCA AGUILA Primary ESHA E GUYDOB: [place] [id number] [address] Insurance:AETNAPolicy [id number] [place] Number: Hospital [id number]: (419) [id number] Repository [phone] () Date:7924-74-65YO [id number] [facility] [place] [address]UH: 07/06/2018 Secondary NOT GIVENUNK [place] Insurance:SELF PAY Community [facility] Number: Effective Repository Date:2018-07-06 07/05/2018 VIANCA AGUILA Primary ESHA E GUYDOB: [place] [id number] [place] Insurance:AETNAPolicy [id number] [place] Number: Hospital [id number]: (419) [id number] Repository [phone] (HP) Date:4335-22-87AM [address] [address]DA: 07/05/2018 Secondary NOT GIVENUNK [place] Insurance:SELF PAY Community [facility] Number: Effective Repository Date:2018-07-05 07/05/2018 VIANCA AYLA Primary ESHA E GUYDOB: [place] [id number] [place] Insurance:AETNAPolicy [id number] [place] Number[facility] Hospital [address]Ljq: (419) [id number] Repository [phone] (HP) Date:4235-67-10JY [address] [address]LR: 07/05/2018 Secondary NOT GIVENUNK [place] Insurance:SELF PAY [facility] Effective Rep[facility] Date:2018-07-05 06/28/2018 VIANCA AYLA Primary ESHA E GUYDOB: Marcelo [id number] [address] Insurance:AETNAPolicy [id number] [place] Number[facility] [address]Zer: (419) [id number] Repository [phone] (HP) Date:1694-84-71[address] [place] [address]OM: 06/28/2018 Secondary NOT GIVENUNK [place] Insurance:SELF PAY Community [facility]: Effective Repository Date:2018-06-28 06/28/2018 VIANCA AYLA Primary Esha E GuyDOB: [place] [id number] [place] Insurance:AETNAPolicy [id number] [place] Number[facility] Hospital [id number]: (419) [id number] Repository [phone] (HP) Date:3822-72-15[address] [address]SW: 06/28/2018 Secondary NOT GIVENUNK [place] Insurance:SELF PAY [facility]: Effective Repository Date:2018-06-28 06/11/2018 VIANCA AYLA Primary NOT GIVENUNK [place] [id number] [place] Insurance:SELF PAY [facility] [id number]: (419) Number: Effective Repository [phone] () Date:2018-06-11 06/10/2018 VIANCA A Primary ESHA E GUYDOB: Mandaeism GUYDOB: Insurance:1500 [id number] [facility] [place]LE [facility], [place]ository [place] Date:2018-06-10 - [id number]: [id number]: [id number] Name:[id number] O ()Tel: [phone] () [address] [place] [phone] (QZ) [address]WP: 06/05/2018 IVANCA AYLA Primary Esha E GuyDOB: [place] [id number] [place] Insurance:AETNAPolicy [id number] Number[place] Hospital [address]Tkx: 419 [id number] Repository [phone] () Date:6556-57-46IK [address] [place] [address]BH: 06/05/2018 Secondary NOT GIVENUNK Marcelo Insurance:SELF PAY [facility] Number: Effective Repository Date:2018-04-01 05/25/2018 VIANCA AYLA Primary ANAHI GUYDOB: [place] [id number] [place] Insurance:AETNAPolicy [id number] Number: Hospital [address]Hds: 419 [id number] Repository [phone] () Date:9250-91-40YN [address] [place] [address]PF: 05/25/2018 Secondary NOT GIVENUNK Marcelo Insurance:SELF PAY [facility] Number: Effective Repository Date:2018-05-25 05/12/2018 VIANCA AGUILA Primary Esha E GuyDOB: [place] [id number] [place] Insurance:AETNAPolicy [id number] Number[place] Hospital [address]Xfh: 419 [id number] Repository [phone] (HP) Date:6721-87-67QN [address] [place] [address]OU: 05/12/2018 Secondary NOT GIVENUNK Marcel[place] Insurance:SELF PAY [facility]: Effective Repository Date:2018-05-12 03/24/2018 VIANCA A Primary ESHA E GUYDOB: Mandae[place] DAVIDYDOB: Insurance:1500 [id number] [facility] AETNAPolic Number: [place] [facility], [place] Repository [place] [phone]: Date:2018-03-24 - [address]Ihw: [id number] (HP) Name:CD:[id number] O ()Tel: [phone]) [address] [place] [phone] () [address]OJ: 03/16/2018 VIANCA AGUILA Primary Esha E GuyDOB: Marcel[place] [id number] [place] Insurance:AETNAPolicy [id number] [facility] [place] Number[facility] Hospital [id number]: 419 [id number] Repository [phone] (HP) Date:0260-74-75QV [address] [place] [address]YW: 03/16/2018 Secondary NOT GIVENUNK Marcel[place] Insurance:SELF PAY [facility]: Effective Repository Date:2018-03-16 09/25/2017 VIANCA A Primary ESHA E GUYDOB: Mandae[place] DAVIDYDOB: Insurance:AETNAPolicy [id number] [facility] Number: Effective [place] [facility], [facility] [place] [facility], Date:2017-09-25 - [place] [id number]: Repository [place] [id number]: [id number] Name:CD:[id number] [address]OX (HP)Tel: [phone]) () [id number] [place] [phone] () [id number]: 09/25/2017 VIANCA [facility] ESHA E GIOVANIOB[facility]:1500 [id number] [facility] AETNAPolicy Number: [place], System [place], Effective [place] [id number]: Repository [place] [id number]: Date:2017-09-25 - [id number] ()Tel: [phone]) (HP) Name:CD:[id number] O [phone] (WP) [address], [place] [address]JY:
== END ==
PROVIDERS: Family Provider Internal Medicine; PCP Internal Medicine; Referring Provider Nurse Practitioner Women's Health; Visit Provider Nurse Practitioner Women's Health
DX: R10.2 Pelvic and perineal pain (principal)
CPT/HCPCS: 76830; 76856; 93976

== ENCOUNTER 2018-07-20 21:39 | Emergency (ER) | payer OTHER, SELFPAY ==
[2018-07-05 15:34] VITALS: BMI 32.3
[2018-07-20 21:40] VITALS: BP 131/71; PULSE 66; RESP 16; TEMP 36.4; O2SAT 100; BMI 33.5
[2018-07-20] MEDS: 0.9% Normal Saline 1,000 ML 1000 ML IV (23:32)
[2018-07-20 23:41] LABS: Bacteria 0 SEEN /hpf (None Seen); Mucous, Urine 0 SEEN /hpf (<or=2+); Red Blood Cells-Urine 0 SEEN /hpf (0-5); White Blood Cells 0 SEEN /hpf (0-5)
[2018-07-20 23:43] LABS: Color, Urine Yellow (Yellow); Glucose, Dipstick Normal (Normal); Ketone-Dipstick Negative (Negative); Leukocyte Esterase-Dipstick Negative /ul (Negative); Nitrite-Dipstick Negative (Negative); Occult Blood-Urine Negative /ul (Negative); Protein-Dipstick Negative (Negative); Specific Gravity, Urine 1.015 (1.002-1.030); Urine Bilirubin Dipstick Negative (Negative); Urine Clarity Clear (Clear); Urine Urobilinogen Normal (Normal)
[2018-07-20 23:44] LABS: Absolute Lymphocyte Count 2.06 X10^3/ul (0.83-4.51); Absolute Neutrophil Count 6.3 X10^3/uL (2.0-7.7); Basophil# 0.02 X10^3/uL; Basophil% 0.2 % (0-1); Eosinophil# 0.04 X10^3/uL; Eosinophils% 0.4 % (0-5); Hematocrit 38.1 % (37-47); Hemoglobin 12.9 g/dl (12.0-15.0); Lymphocyte # 2.06 X10^3/ul (4.0); Lymphocyte % 22.6 % (19-41); Mean Corp Hgb Conc 33.9 g/gl (32-36); Mean Corpuscular Hgb 30.7 pg (27.0-32.0); Mean Corpuscular Volume 90.7 fL (81-99); Mean Platelet Vol. 10.2 fl (6.2-12.0); Monocyte# 0.67 X10^3/uL; Monocyte% 7.4 % (0-10); Neutrophil # 6.29 X10^3/uL (2.7-7.7); Neutrophil % 69.2 % (47-70); Platelet Count 229 K/mm3 (150-450); RBC Distribution Width CV 12.6 % (11.6-14.6); RBC Distribution Width SD 41.4 fl (35.1-43.9); White Blood Count 9.1 K/mm3 (4.4-11.0)
[2018-07-20 23:46] LABS: POSITIVE COUNT NO; POSITIVE DIFFERENTIAL NO; POSITIVE MORPHOLOGY NO
[2018-07-20 23:51] LABS: Squamous Epithelial Cells - UA 0-5 SEEN /hpf (5-10)
[2018-07-20 23:57] LABS: Anion Gap 6 (5-15); BUN 5 mg/dL (7-18); BUN/Creat Ratio 7.2 RATIO (10-20); Calcium,Total 8.7 mg/dL (8.5-10.1); Chloride 107 mmol/L (98-107); EST Glomerular Filtration Rate 111 mL/min (>60); Est Glom Filt Rate - Afr Amer 135 mL/min (>60); Estimated Creatinine Clearance 136.32 ml/min; Glucose 86 mg/dL (74-106); Potassium 3.6 mmol/L (3.5-5.1); Sodium Level 140 mmol/L (136-145)
[2018-07-21 00:05] LABS: Pregnancy, Serum, hCG Quali. NEGATIVE Negative (0-9 Nonpreg)
--- NOTE | 2018-07-21 00:09 | CT_ITS ---
STUDY: CT ABDOMEN AND PELVIS WITHOUT CONTRAST REASON FOR EXAM: Female, 22 years old. Right-sided abdominal pain. RADIATION DOSAGE (If Supplied By Facility): CTDIvol = ( 14.21 ) mGy, DLP = ( 731.26 ) mGycm TECHNIQUE: Transaxial images were obtained from the dome of the diaphragm to the symphysis pubis without oral contrast, and without intravenous contrast. Sagittal and coronal images were reconstructed. Individualized dose optimization techniques were used for this CT. COMPARISON: Pelvic ultrasound July 16, 2018. FINDINGS: The visualized lung bases are unremarkable. The visualized portions of the heart are within normal limits. Normal liver. Normal gallbladder and extrahepatic biliary system. Normal spleen. Normal pancreas. Normal bilateral adrenal glands. Normal right kidney. Normal left kidney. Normal visualized stomach. Multiple loops of small bowel are collapsed limiting evaluation. Normal colon. Appendix not visualized. Grossly appearance of the abdomen does not suggest acute appendicitis. Normal abdominal aorta. Normal inferior vena cava. Normal retroperitoneum. No intra-abdominal free air. Normal urinary bladder. Uterus grossly normal. No adnexal masses seen. Normal abdominal wall. L5-S1 disc space narrowing. CT/Abdomen/Pelvis without Cont IMPRESSION: No acute findings in the abdomen or pelvis. No evidence of bowel obstruction. Appendix not visualized. Electronically Signed: Alfredo Alston MD at 1:03 EST , Service support ,
--- NOTE | 2018-07-21 00:36 | ED.VISSUMM ---
- ER Visit Summary Date of Service: 07/21/18 Chief Complaint: Right flank pain History of Present Illness: The patient is a 22 F who reports having nausea and overall just not feeling well for the past couple of days. Tonight while sitting at basketball game she developed right lower back pain that radiated around to the right lower quadrant. She denies urinary symptoms. Patient was recently seen by her RANGE MOUNTER and had a pelvic ultrasound that revealed normal ovaries with no sign of ovarian cyst. Physical Examination: Vital signs are unremarkable. Patient sitting upright in bed no acute distress. Head neck examination is normal. Heart is regular rate and rhythm. Lung sounds clear. Abdomen is soft with mild tenderness in the right lower quadrant. No guarding or rebound. Active bowel sounds are noted throughout. Back examination reveals no CVA tenderness. She has mild tenderness in the right low lumbar paraspinal muscles. Test Results: CBC and chemistry studies are unremarkable. Urinalysis normal. test negative. Emergency Department Course and Treatment: Patient declined anything for pain while here. On repeat examination she is resting comfortably. She now states that this pain has been intermittent for the past several weeks. We discussed risks and benefits of a CT scan and she does wish to obtain imaging. CT flank is obtained that shows no acute findings and no evidence of bowel obstruction. No sign of acute appendicitis. On my review of imaging she does have quite a bit of stool, especially in the ascending colon where she is having pain. She is given a prescription for mag citrate. Treatment Plan: [] Disposition: Discharge Impression: 1. Right lower quadrant pain 2. Constipation This note was generated with [employer] dictation software. It may contain incorrect words, spelling, and punctuation that were not noted in review of the chart prior to signing ED Disposition - Plan for ED Patient: Disposition: Home or Assisted Living Chief Complaint: Flank Pain Referrals: Ladi York DO [Primary Care Provider] -
[2018-07-21 00:49] VITALS: BP 118/69; PULSE 68; RESP 18; O2SAT 99
--- NOTE | 2018-07-21 02:15 | ED.RN ---
SEE DOWNTIME CHARTING FROM [phone]
--- OUTSIDE RECORDS SUMMARY | 2018-09-22 00:01 | XMS RPT_ITS ---
:1995 Author Organization [place] Support Name Relationship Address Phone SELVIN AQUINO Unavailable [address] + [place] [address] ANAHI AQUINO Unavailable [address] + [place] [address] WC Unavailable [address] + [place] [address] FELIXSELVIN Unavailable [address] + [place] [address] FELIXAICHARY Unavailable [address] + [place] [address] [facility] Unavailable [address] + [place] [address] FELIXSELVIN Unavailable [address] + [place] [address] FELIX ANAHI Unavailable [address] + [place] [address] [facility] Unavailable [address] + [place] [address] FELIXPOLINASELVIN Unavailable [address] + [place] [address] FELIXAICHARY Unavailable [address] + [place] [address] [facility] Unavailable [address] + [place] [address] FELIXPOLINASELVIN Unavailable [address] + [place] [address] FELIX ANAHI Unavailable [address] + [place] [address] [facility] Unavailable [address] + [place] [address] POLINA AQUINOELLE Unavailable [address] + [place] [address] FELIX ANAHI Unavailable [address] + [place] [address] [facility] Unavailable [address] + [place] [address] FELIX SELVIN Unavailable [address] + [place] [address] ANAHI AQUINO Unavailable [address] + [place] [address] [facility] Unavailable [address] + [place] [address] FELIX SELVIN Unavailable [address] + [place] [address] ANAHI AQUINO Unavailable [address] + [place] [address] [facility] Unavailable [address] + [place] [address] FELIX SELVIN Unavailable [address] + [place] [address] FELIXANAHI Unavailable [address] + [place] [address] [facility] Unavailable [address] + [place] [address] POLINA AQUINOELLE Unavailable [address] + [place] [address] FELIXANAHI Unavailable [address] + [place] [address] [facility] Unavailable [address] + [place] [address] SELVIN AQUINO Unavailable [address] + [place] [address] FELIX ANAHI Unavailable [address] + [place] [address] [facility] Unavailable [address] + [place] [address] GERSON MCDERMOTT Unavailable [address] + [place] [address] SELVIN AQUINO Unavailable [address] + [place] [address] [facility] Unavailable [address] + [place] [address] POLINA AQUINOELLE Unavailable [address] + [place] [address] FELIX, ANAHI Unavailable [address] + [place] [address] [facility] Unavailable [address] + [place] [address] Care Team Providers Name Role Phone COOPERRIDER [...] Referring Unavailable AYO JONES Primary Care Unavailable Trenton, Mary Attending Unavailable DOCTOR, OUT OF TOWN Referring Unavailable Trenton, Mary Attending Unavailable AYO JONES Primary Care Unavailable Narendra, Mary Referring Unavailable Narendra, Mary Attending Unavailable Trenton, Mary Referring Unavailable AYO JONES Primary Care Unavailable Narendra, Mary Attending Unavailable Trenton, Mary Referring Unavailable Oberhauser, Ladi Primary Care [...] R10.2 - Pelvic and Narendra, Mary Active [facility] perineal pain / Community R10.2(ICD-10) Hospital Repository 07/06/2018 Unknown Z11.3 - Encounter Mary Mackey Active [place] for screening for Community infections with a Hospital predominantly Repository sexual mode of transmission / Z11.3(ICD-10) 06/28/2018 Unknown R30.0 - Dysuria / Evgeny Keith Active [place] R30.0(ICD-10) [facility] Hospital Repository 05/31/2018 Active Myopia, bilateral / NA Active [place] H52.13(ICD-10) [facility] [place] Repository 05/12/2018 Unknown R05 - Cough / Antonio Alberto Active [place] R05(ICD-10) [facility] Repository 05/12/2018 Unknown J06.9 - Acute upper Antonio Alberto Active [facility] respiratory Community infection, Hospital unspecified / Repository J06.9(ICD-10) 05/12/2018 Unknown J40 - Bronchitis, Antonio Alberto Active [facility] not specified as Community acute or chronic / Hospital J40(ICD-10) Repository 06/17/2018 Unknown Z77.21 - Contact Jericho Scanlon Active [place] with and Community (suspected) Hospital exposure to Repository potentially hazardous body fluids / Z77.21(ICD-10) 03/08/2018 Active Encounter for COOPERRIDER II, Active [place] general adult [facility] examination [place] without abnormal Repository findings / Z00.00(ICD-10) PROCEDURES PROCEDURES No Procedure Records FoundRESULTS RESULTS Observed: 07/23/2018 Status: F Source: [place] CULTURE, NOSE 3:15 PM [facility] HOSPITAL REPOSITORY Gram Stain Gram Stain [...] 1 S (NF) indicates non-formulary drug at [facility]. Approval by Infectious Disease Specialist required before non-formulary drugs may be ordered and/or dispensed. * CLSI guidelines does not recommend testing of cephalosporins. This interpretation is deduced from Beta-lactam/penicillin results. Performed By: #### M100.0900 #### [facility] [address] [place], [address] EMERGENCY DEPARTMENT Observed: 07/21/2018 Status: F Source: [place] SUMMARY 2:44 PM [facility] [place] [facility] Medical Records Department [address] [place] [address] Emergency Department Summary 07/21/18 0036 MR#: [id number] Acct: [id number] Name: VIANCA AQUINO Rep #: [id number] : 1995 22 From: Helene Brown MD [...] symptoms. Patient was recently seen by her PEANUT PICKER and had a pelvic ultrasound that revealed [...] 2. Constipation This note was generated with Aeropostale dictation software. It may contain incorrect words, [...] problems, contact your Primary Care Provider. Call [facility] ([phone]) or report to the closest Emergency Room. Call 911 if necessary. 07/21/18 9714 <Electronically signed by Helene Brown MD> Date Helene Brown MD Cosign Signature (If Indicated): Date CC: Ladi York DO ABDOMEN/PELVIS WITHOUT Observed: 07/21/2018 Status: F Source: [place] CONT 12:10 AM [facility] [place] [facility] Imaging Services [address] [place] [address] Abdomen/Pelvis without Cont MR#: [id number] Acct: [id number] Name: VIANCA AQUINO Rep #: [id number] : 1995 F 22 From: Alfredo Alston PCP: Ladi York DO Status: REG ER Study: Abdomen/Pelvis without Cont Date of Exam: 07/21/18 Exam# [id number] Ordering Dr: Helene Brown MD STUDY: CT [...] CC: Helene Brown MD; Ladi York DO Electrical Engineer Mep: Signed CBC W/DIFF, AUTOMATED Collected: 07/20/2018 Status: F Source: [place] 11:35 PM [facility] [place] TYPE CODE TESTS RESULT OUT OF [...] Lymph 2.06 Performed By: #### L100.0100 #### [facility] [place], [place], [address] URINALYSIS, COMPLETE Collected: 07/20/2018 Status: F Source: [place] 11:35 PM [facility] [place] Order Comment: How was Urine Obtained? [...] SEEN Performed By: #### L400.0001, L700.6800 #### [facility] [address] [facility]. [place], [place], [address] ,SERUM,HCG QUALI. Collected: Status: F Source: [place] 07/20/2018 11:35 PM [facility] [place] TYPE CODE TESTS RESULT OUT OF REFERENCE UNITS RANGE LAB L700.7000 0-9 Nonpreg Negative Normal HCGSQUAL NEGATIVE LAB L700.6700 =>Qualitative mIU/mL Normal HCG Qual < 1 triggr Performed By: #### L400.0001, L700.6800 #### [facility] [address] [facility] [place], [place], [address] BASIC METABOLIC Collected: 07/20/2018 Status: F Source: [place] PROFILE (BMP) 11:35 PM [facility] [place] TYPE CODE TESTS RESULT OUT OF [...] Normal 6 Performed By: #### L500.2500 #### [facility] [address] [facility] [place], [address] TRANSVAGINAL Observed: 07/16/2018 Status: F Source: [place] NON- 12:12 PM [facility] [place] [facility] Imaging Services [address] [place] [address] Transvaginal Non- MR#: [id number] Acct: [id number] Name: VIANCA AQUINO Rep #: [id number] : 1995 F 22 From: Jose Larsen MD PCP: OUT OF TOWN DOCTOR Status: REG CLI Study: Transvaginal Non- Date of Exam: 07/16/18 Exam# [id number] Ordering Dr: Mary Mackey ELECTROENCEPHALOGRAPHIC TECHNOLOGISTBeatriz STUDY: ULTRASOUND OF THE FEMALE PELVIS - [...] Jose Larsen MD at 15:27 EST Tel [phone], Service support , CC: ASHLIE Mackey; OUT OF [facility] DOCTOR Electrical Engineer Mep: Signed PELVIC (NON ) Observed: 07/16/2018 Status: F Source: [place] 12:12 PM [facility] [place] [facility] Imaging Services [address] [place] [address] Pelvic (Non ) MR#: [id number] Acct: [id number] Name: VIANCA AQUINO Rep #: [id number] : 1995 F 22 From: Jose Larsen MD PCP: OUT OF TOWN DOCTOR Status: REG CLI Study: Pelvic (Non ) Date of Exam: 07/16/18 Exam# [id number] Ordering Dr: Mary Mackey STUDY: ULTRASOUND OF [...] Jose Larsen MD at 15:27 EST Tel [phone], Service support , CC: ASHLIE Mackey; OUT OF TOWN DOCTOR Electrical Engineer Mep: Signed HIV - [facility] Collected: 07/06/2018 Status: F Source: [place] 6:56 AM [facility] [place] TYPE CODE TESTS RESULT OUT OF RANGE REFERENCE UNITS LAB L3890.6005 Nonreactive Normal HIV - [facility] Non-Reactive Performed By: #### L3890.6005 #### [facility] [address] [place], [place], [address] HSV 1 AND 2 IGG Collected: 07/06/2018 Status: F Source: [place] 6:56 AM [facility] [place] TYPE CODE TESTS RESULT OUT OF [...] antibodies detected to HSV-2. Performed at: - [facility] [id number] Painter Helper: Phuong Gomez MD, Phone: [phone] Performed at: [facility] [id number] Painter Helper: Jose Cruz Brown PhD, Phone: [phone] Performed By: #### L3400.1610, L7000.7000 #### [facility] (refer to report for specific site) refer to report for address and phone number HEPATITIS C,RNA PCR Collected: 07/06/2018 Status: F Source: [place] VIRAL LOAD 6:56 AM [facility] [place] TYPE CODE TESTS RESULT OUT OF [...] Status: F Source: [place] (RPR) 6:56 AM [facility] [place] TYPE CODE TESTS RESULT OUT OF REFERENCE UNITS RANGE LAB L700.5000 NONREACTIVE NONREACTIVE Normal RPR Performed By: #### L700.5000 #### [facility] [address] [place], [address] CT/NG [facility] BY PCR Collected: 07/05/2018 Status: F Source: [place] 6:06 PM [facility] [place] Order Comment: Comments: urine TYPE CODE TESTS RESULT OUT OF RANGE REFERENCE UNITS LAB L8200.2100 Negative Normal Chlam Negative Trac PCR LAB L8200.2200 Negative Normal NG by Negative PCR Performed By: #### L8200.2000 #### [facility] [address] [place], [address] PEAN[facility] PICKER OFFICE VISIT Observed: 07/05/2018 Status: F Source: [place] REPORT 3:34 PM [facility] [place] [address] [place] [address] OFFICE VISIT Date of Service: 07/05/18 MR#: [id number] Acct: [id number] Name: VIANCA AQUINO Rep #: [id number] : 1995 Provider: ASHLIE Mackey Age/Sex: 22/F Location: [facility] [place] [facility] Status: Signed Intake Vital Signs07/05/18 Height 5 ft 10 in 07/05/18 Weight: 237 lb 07/05/18 Body Mass Index (BMI) 34.0 07/05/18 Blood Pressure 124/84 H Intake Visit Reasons: OVARIAN CYST? 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 [employer] [facility] HPI OVARIAN CYST? OVARIAN PAIN, PAIN WITH [...] Status: F Source: [place] REPORT 4:05 PM [facility] [place] [facility] [address] [place] [address] 6 [place] [address] OFFICE VISIT Date of Service: 06/28/18 MR#: [id number] Acct: [id number] Name: VIANCA AQUINO Rep #: [id number] : 1995 Provider: Evgeny ALBA Age/Sex: 22/F Location: [facility] Status: Signed Intake Vital Signs06/28/18 Body Mass Index (BMI) 32.3 06/28/18 Height 5 ft 10 in Intake Visit Reasons: LOWER BACK AND HIP AND LOWER ABD PAIN/UTI? Chief Complaint: uti Habitat Conservation Planner Required: No Accompanied by: Self Is patient in pain?: Yes Allergies No Known Allergies Allergy (Verified 06/28/18 11:06) [facility] Medical History History of wisdom tooth [...] she does have an appointment with her PEANUT PICKER coming up the next several days however wants to be tested for UTI to rule it out. She states that she has had this lower abdominal/pelvic pain for the past several days as well as several episodes of painful intercourse which is why she made her appointment with her PEANUT PICKER however since she could not get in [...] to continue with her f appointment with PEANUT PICKER for further assessment and treatment as she [...] vis,est,level 3 Diagnoses Painful sexual intercourse 06/28/18 7206 <Electronically signed by Evgeny ALBA> Date Evgeny ALBA Cosigner Signature: Date (if applicable) CC: URINALYSIS, COMPLETE Collected: 06/28/2018 Status: F Source: [place] 3:11 PM [facility] [place] Order Comment: How was Urine Obtained? [...] URINE SEEN Performed By: #### L400.0001 #### [facility] [address] [place], [place], [address] Observed: 06/28/2018 Status: F Source: [place] CULTURE, URINE 3:11 PM [facility] [place] Urine Culture Culture exhibits no growth. Performed By: #### M100.0650 #### [facility] [address] [place], [place], [address] HEPATITIS C,RNA PCR Collected: 06/11/2018 Status: F Source: [place] VIRAL LOAD 7:07 AM [facility] [place] TYPE CODE TESTS RESULT OUT OF RANGE REFERENCE UNITS LAB L7000.7100 . IU/mL HCV Normal HCV Not Detected QT PCR LAB L7000.7350 . Test Normal HCV not performed log 10 LAB L7000.7500 . Normal TEST Comment INFO: Result Comment: The quantitative range of this assay is 15 IU/mL to 100 million IU/mL. Performed at: - [facility] [id number] Painter Helper: Phuong Gomez MD, Phone: [phone] Performed By: #### L7000.7000 #### [facility] (refer to report for specific site) refer to report for address and phone number HIV - [facility] Collected: 06/05/2018 Status: F Source: [place] 11:32 AM [facility] [place] [facility] TYPE CODE TESTS RESULT OUT OF RANGE REFERENCE UNITS LAB L3890.6005 Nonreactive Normal HIV - [facility] Non-Reactive Performed By: #### L3890.6005 #### [facility] [address] [place], [place], [address] HEPATITIS ABC PROFILE Collected: 06/05/2018 Status: F Source: [place] 11:32 AM [facility] [place] [facility] TYPE CODE TESTS RESULT OUT OF RANGE REFERENCE UNITS LAB L3100.0200 Negative Normal HEP A Negative IgM 6734 LAB L3100.0300 Negative Normal HEP A Negative AB,T.6726 LAB L3100.0400 Negative Normal HB Negative SURF AG LAB L3100.0440 Negative Normal HB Negative CORE [id number] LAB L3100.0460 Negative Normal HEP B Negative [...] indicate HCV infection. Performed at: - [facility] [id number] Painter Helper: Jose Cruz Brown PhD, Phone: [phone] Performed By: #### L3000.0700 #### [facility] (refer to report for specific site) refer to report for address and phone number DISCHARGE INSTRUCTION Observed: 05/25/2018 Status: F Source: [place] 9:02 AM [facility] [place] Medical Records Department [address] [place] [address] Discharge Instruction 05/25/18 09 MR#: [id number] Acct: [id number] Name: FELIXVIANCA AYLA Rep #: [id number] : 1995 From: Shonda Reyes DO PCP: [...] your Primary Care Provider. Call [facility] ([phone]) or report to the closest Emergency Room. Call 911 if necessary. 05/25/[address] <Electronically signed by Shonda Reyes DO> Date Shonda Reyes DO Cosigner Signature (If Indicated): Date CC: No Primary Care Physician EMERGENCY DEPARTMENT Observed: 05/25/2018 Status: F Source: [place] SUMMARY 9:00 AM [facility] [place] [facility] Medical Records Department [address] [place] [address] Emergency Department Summary 05/25/18 0857 MR#: [id number] Acct: [id number] Name: FELIXVIANCA Rep #: [id number] : 1995 From: Shonda Reyes DO PCP: [...] Impression: [UTI] This note was generated with Advaliantation software. It may contain incorrect words, spelling, [...] your Primary Care Provider. Call [facility] ([phone]) or report to the closest Emergency Room. Call 911 if necessary. 05/25/18 0900 <Electronically signed by Shonda Reyes DO> Date Shonda Reyes DO Cosigner Signature (If Indicated): Date CC: No Primary Care Physician URINALYSIS, COMPLETE Collected: 05/25/2018 Status: F Source: [place] 7:45 AM [facility] [place] [facility] Order Comment: How was Urine Obtained? [...] 0 SEEN Performed By: #### L400.0001 #### [facility] [address] [place], [place], [address] Observed: 05/25/2018 Status: F Source: [place] CULTURE, URINE 7:45 AM [facility] [place] [facility] Order Date: 05/25/18 Has pt arrived? Y Urine Culture ORGANISM 1: Mixed Gram Pos AND Gram Neg Org [place] Count <1000 MIX CULTURE Mixed contaminants. Submit a new specimen if indicated. Performed By: #### M100.0650 #### [facility] [address] [place], [place], [address] URGENT CARE VISIT Observed: 05/12/2018 Status: F Source: [place] REPORT 12:56 PM [facility] [place] [facility] [address] [place] [address] [address] [place], [place] [address] OFFICE VISIT Date of Service: 05/12/18 MR#: [id number] Acct: [id number] Name: VIANCA AQUINO Rep #: [id number] : 1995 Provider: Antonio ALBA Age/Sex: 22/F Location: [facility] Status: Signed Intake Vital Signs05/12/18 Height 5 ft 10 in 05/12/18 Weight: 230 lb Intake Visit Reasons: SORE THROAT, COUGH, HEAD CONGESTION Chief Complaint: Dry cough, body aches Habitat Conservation Planner Required: No Accompanied by: None Allergies No [...] her probable infection. She notes taking no gvoz-bfi-iezsiym products to assist with symptoms. She notes [...] the above. This note was generated with Aeropostale dictation software. It may contain incorrect words, spelling, and punctuation that were not noted in checking the note before signing. Orders Orders: Medications New: Coding Level of Care Code Off vis,new,level 3 Diagnoses URI (upper respiratory infection) J06.9 Bronchitis J40 05/12/18 1256 <Electronically signed by Antonio ALBA> Date Antonio ALBA Cosign Signature: Date (if applicable) CC: EMERGENCY DEPARTMENT Observed: 03/17/2018 Status: F Source: [place] SUMMARY 2:35 AM [facility] [place] [facility] Medical Records Department [address] [place] [address] Emergency Department Summary 03/16/18 1702 MR#: [id number] Acct: [id number] Name: VIANCA AQUINO Rep #: [id number] : 1995 22 From: Jericho Scanlon MD [...] was drawn, patient will follow up with [facility]. Disposition: Discharge Impression: 1. Occupational exposure This note was generated with Advaliantation software. It may contain incorrect words, spelling, [...] your Primary Care Provider. Call [facility] ([phone]) or report to the closest Emergency Room. Call 911 if necessary. 03/17/18 0235 <Electronically signed by Jericho Scanlon MD> Date Jericho Scanlon MD Cosigner Signature (If Indicated): Date CC: Jose Antonio Aguilar MD HIV - [facility] Collected: 03/16/2018 Status: F Source: [place] 5:40 PM [facility] [place] [facility] Order Comment: Has pt arrived? Y TYPE CODE TESTS RESULT OUT OF RANGE REFERENCE UNITS LAB L3890.6005 Nonreactive Normal HIV - [facility] Non-Reactive Performed By: #### L3890.6005 #### [facility] [place], [address] HEPATITIS B SURFACE Collected: 03/16/2018 Status: F Source: [place] AG 5:40 PM [facility] [place] [facility] Order Comment: Has pt arrived? Y TYPE CODE TESTS RESULT OUT OF RANGE REFERENCE UNITS LAB L3100.0400 Negative Normal HB Negative SURF AG Result Comment: Performed at: - [facility] [address] [id number] Painter Helper: Jose Cruz Brown PhD, Phone: [phone] Performed By: #### L3100.0390, L3100.8418, L3100.2533 #### [facility] (refer to report for specific site) refer to report for address and phone number HEP B SURFACE Collected: 03/16/2018 Status: F Source: [place] ANTIBODIES EMP 5:40 PM [facility] [place] [facility] Order Comment: Has pt arrived? Y [...] C ANTIBODIES Collected: 03/16/2018 Status: F Source: [place] 5:40 PM [facility] [place] [facility] Order Comment: Has pt arrived? Y TYPE CODE TESTS RESULT OUT OF RANGE REFERENCE UNITS LAB L3100.0650 0.0-0.9 s/co ratio Normal HEP C AB <0.1 Result Comment: Negative: < 0.8 Indeterminate: 0.8 - 0.9 Positive: > 0.9 The CDC recommends that a positive HCV antibody result be followed up with a HCV Nucleic Acid Amplification test (565364). Performed By: #### L3100.0390, L3100.0537, L3100.0625 #### [facility] (refer to report for specific site) refer to report for address and phone number PROGRESS Observed: 03/08/2018 Status: COMPLETED Source: [place] 10:36 AM [facility] REPOSITORY O ID: [id number] Author: Luci Gonzales II Service: (none) Author Type: FLIGHT TEST DATA ACQUISITION TECHNICIAN Type: Progress Notes Filed: 03/08/2018 10:40 AM [...] AUTO DIFF Collected: 09/25/2017 Status: F Source: [place] 12:35 [facility] REPOSITORY TYPE CODE TESTS RESULT OUT OF RANGE REFERENCE UNITS LAB 14280451(L 3.6-11.0 E3/mcL OINC) Normal WBC 5.7 LAB 80301583(L 3.90-5.40 E6/mcL OINC) Normal RBC 4.33 LAB 78868523(L 12.0-16.0 G/DL OINC) Normal Hgb 13.2 LAB 73488508(L 36.0-48.0 % OINC) Normal Hct 38.7 LAB 07863931(L 11.5-14.5 % OINC) Normal RDW 12.7 LAB 62821036(L 27.0-31.0 pg OINC) Normal MCH 30.5 LAB 34427290(L 33.0-37.0 G/DL OINC) Normal MCHC 34.2 LAB 32959053(L 78.0-100.0 fL OINC) Normal MCV 89.3 LAB 87968399(L 7.4-11.0 fL OINC) Normal MPV 8.7 LAB 78539160(L 130-400 E3/mcL OINC) Normal Platelet 206 Performed By: #### [id number] #### [facility] [place] [address] AUTO DIFF Collected: 09/25/2017 Status: F Source: [place] 12:35 [facility] REPOSITORY Order Comment: Order Added by Discern Expert. TYPE CODE TESTS RESULT OUT OF RANGE REFERENCE UNITS LAB 60140573(L 37.0-75.0 % OINC) Normal Neutro Auto 64.0 LAB 33407356(L 20.0-55.0 % OINC) Normal Lymph Auto 24.9 LAB 65459200(L 0.0-10.0 % OINC) Normal [place] Auto 9.1 LAB 56261711(L 0.0-11.0 % OINC) Normal Eos Auto 1.4 LAB 73703094(L 0.0-2.0 % OINC) Normal Basophil Auto 0.6 LAB 81042802(L 1.4-6.5 E3/mcL OINC) Normal Neutro 3.7 Absolute LAB 83107675(L 1.2-3.4 E3/mcL OINC) Normal Lymph Absolute 1.4 LAB 07625722(L 0.0-0.7 E3/mcL OINC) Normal [place] Absolute 0.5 LAB 42357722(L 0.0-0.7 E3/mcL OINC) Normal Eos Absolute 0.1 LAB 52567350(L 0.0-0.2 E3/mcL OINC) Normal Basophil 0.0 Absolute Performed By: #### [id number] #### DESE[facility] Webb [address] [place] [address] CMP Collected: 09/25/2017 Status: F Source: [place] 12:35 PM [facility] REPOSITORY TYPE CODE TESTS RESULT OUT OF RANGE REFERENCE UNITS LAB 79188268(L 70-99 mg/dL OINC) Glucose Normal Lvl 84 LAB 72483483(L 8.4-10.2 mg/dL OINC) Calcium Normal Lvl 9.1 LAB 53228870(L 136-145 mEq/L OINC) Sodium Normal Lvl 138 LAB 47082176(L 3.5-5.1 mEq/L OINC) Normal Potassium Lvl 4.5 LAB 29053931(L 98-107 mEq/L OINC) Chloride Normal 106 LAB 69824808(L 24.0-30.0 mEq/L OINC) CO2 Normal 25.3 LAB 84908241(L 7-18 mg/dL OINC) BUN Normal 9 LAB 8329482(LO 0.6-1.3 mg/dL INC) Normal Creatinine 0.7 LAB 53081212(L 42-121 Int._Unit/ OINC) L Alk Phos Normal 60 LAB [id number](L 0.2-1.0 mg/dL OINC) Bili Normal Total 0.5 LAB [id number](L 3.2-5.0 G/DL OINC) Albumin Normal Lvl 4.0 LAB [id number](L 6.4-8.3 G/DL OINC) Total Normal Protein 7.5 LAB [id number](L 10-40 Int._Unit/ OINC) L ALT Normal 20 LAB [id number](L 10-42 Int._Unit/ OINC) L AST Normal 21 LAB [id number](L 5.4-30.0 ratio OINC) Normal BUN/Creat Ratio 12.9 LAB [id number](L 2.0-4.0 G/DL OINC) Globulin Normal 3.5 LAB [id number](L 1.1-1.9 ratio OINC) A/G Normal Ratio 1.1 Performed By: #### [id number] #### DESEAN [facility] [place] [address] EGFR Collected: 09/25/2017 Status: F Source: ORTHODOXY 12:35 [facility] REPOSITORY Order Comment: Order added by Discern Expert. TYPE CODE TESTS RESULT OUT OF RANGE REFERENCE UNITS LAB [id number](LO mL/min/1.73 INC) m2 Normal eGFR >60 LAB [id number](LO mL/min/1.73 INC) m2 Normal eGFR AA >60 Performed By: #### [id number] #### DESEAN [facility] [place] [id number] LIPID PROFILE Collected: 09/25/2017 Status: F Source: ORTHODOXY 12:35 [facility] REPOSITORY TYPE CODE TESTS RESULT OUT OF RANGE REFERENCE UNITS LAB [id number](LO 50-200 mg/dL INC) Normal Chol 130 Result Comment: TOTAL CHOLEESTEROL: <200 NORMAL 200 - 239 BORDERLINE HIGH >240 HIGH LAB [id number](LOINC) >=41 mg/dL Normal HDL 44 LAB 16733332(LOINC) 0-130 mg/dL Normal LDL 76 Result Comment: <100 OPTIMAL 100-129 NEAR / ABOVE OPTIMAL 130-159 BORDERLINE HIGH 160-189 HIGH >190 VERY HIGH CALC LDL NOT VALID WHEN TRIGLYCERIDE IS >400 MG/DL LAB 62076168(LOINC) 35-150 mg/dL Normal Trig 50 Result Comment: <150 NORMAL 150-199 BORDERLINE HIGH 200-499 HIGH >500 VERY HIGH LAB [id number](LOINC) Normal VLDL 10 Performed By: #### [id number] #### DESEAN [facility] [place] [address] TSH Collected: 09/25/2017 Status: F Source: ORTHODOXY 12:35 PM [facility] REPOSITORY TYPE CODE TESTS RESULT OUT OF RANGE REFERENCE UNITS LAB [id number](LO 0.30-5.60 mIU/m INC) Normal TSH 1.28 Performed By: #### [id number] #### DESEAN [facility] [place] [address] ALLERGIES ALLERGIES DATE TYPE / CODE NAME / CODE REACTION SEVERITY SOURCE 07/20/2018 Drug No Known Unknown [facility] Allergy/416 Allergies/I10821 Hospital 940557(SNOM 0388(RXNORM) Repository ED CT) Drug NO KNOWN [facility] Class/29442 ALLERGIES [facility] 1003(SNOMED Repository CT) Drug/572693 No Known Yazidi 003(SNOMED Allergies [facility] CT) System Repository ENCOUNTERS ENCOUNTERS ADMIT/DISCHARGE ACCOUNT NUMBER ADMITTING ENCOUNTER LOCATION SOURCE CLASS 07/23/2018 [id number] Ambulatory [facility] ding:LABSPEC Repository 07/20/2018/07/21/19 [id number] Emergency [address] ding:ED Repository 07/16/2018 [id number] Ambulatory [facility] ding:OPUS Repository 07/06/2018 [id number] Ambulatory [facility] ding:LAB Repository 07/05/2018 [id number] Ambulatory [facility] ding:LABSPEC Repository 07/05/2018/07/05/19 [id number] Ambulatory BMSBuilding: [place] 19 [facility] Repository 06/28/2018 [id number] Ambulatory [facility] ding:LABSPEC Repository 06/28/2018/06/28/20 [id number] Ambulatory BMSBuilding: [place] 18 [facility] Repository 06/11/2018 [id number] Ambulatory [facility] ding:LAB Repository 06/10/2018/06/10/20 [id number] [place], Ambulatory [facility] 18 Ladi L eBuilding:[facility] oom: Room 1 Repository 06/05/2018 [id number] Ambulatory [facility] ding:LAB Repository 05/31/2018/06/04/20 [id number] Ambulatory [address] Repository 05/25/2018/05/25/20 [id number] Emergency [address] ding:ED Repository 05/12/2018/05/12/20 [id number] Ambulatory BMSBuilding: [address] Repository 03/24/2018/03/24/20 [id number] [place], Ambulatory [facility] 18 Ladi L eBuilding:[facility] oom: Room 1 Repository 03/16/2018/03/16/20 [id number] Emergency [address] ding:ED Repository 03/08/2018/03/09/20 [id number] Ambulatory [address] Repository 02/11/2018/02/13/20 [id number] Ambulatory [address] Repository 09/25/2017/09/26/19 [id number] [place], Ambulatory [facility] 18 Ladi L [facility] ding:.[facility] Repository 09/25/2017/09/26/19 [id number] [place], Ambulatory [facility] 18 Ladi L eBuilding:[facility] oom: Room 2 Repository PAYERS PAYERS ENCOUNTER GUARANTOR PAYER SUBSCRIBER SOURCE 07/23/2018 VIANCA MONTESINOS: [place] [id number] [facility] Insurance:[place]ng [id number] Number: [facility] [address]Iwr: ([phone]) [id number] Repository [phone] () Date:3287-63-58EC [address] [place] [address]GQ: 07/23/2018 Secondary NOT GIVENUNK [place] Insurance:SELF PAY [facility] Number: Effective Repository Date:2018-07-23 07/20/2018 VIANCA Marti Primary ESHA E DAVIDYDOB: [place] [id number] [address] Insurance:AETNAPolicy [id number] access hospital [place] Number: Hospital [address]Lvz: (419) [id number] Repository [phone] () Date:3273-77-01MC [address] [place] [address]UT: 07/20/2018 Secondary NOT GIVENUNK [place] Insurance:SELF PAY [facility] Number: Effective Repository Date:2018-07-20 07/16/2018 VIANCA Marti Primary ESHA E DAVIDYDOB: [place] [id number] [place] Insurance:AETNAPolicy [id number] access hospital [place] Number: Hospital [address]Skj: (419) [id number] Repository [phone] () Date:5502-84-83LK [address] [place] [address]WT: 07/16/2018 Secondary NOT GIVENUNK [place] Insurance:SELF PAY Community [facility] Number: Effective Repository Date:2018-07-05 07/06/2018 VIANCA AGUILA Primary ESHA E GUYDOB: [place] [id number] [place] Insurance:AETNAPolicy [id number] access hospital [place] Number: Hospital [address]Mho: (419) [id number] Repository [phone] () Date:3457-79-14GY [address] [place] [address]UR: 07/06/2018 Secondary NOT GIVENUNK [place] Insurance:SELF PAY Community [facility] Number: Effective Repository Date:2018-07-06 07/05/2018 VIANCA AGUILA Primary ESHA E GUYDOB: [place] [id number] [place] Insurance:AETNAPolicy [id number] [place] Number: Hospital [address]Wbn: (419) [id number] Repository [phone] (HP) Date:8346-14-37FH [address] [place] [address]LC: 07/05/2018 Secondary NOT GIVENUNK [place] Insurance:SELF PAY Community [facility] Number: Effective Repository Date:2018-07-05 07/05/2018 VIANCA AYLA Primary ESHA E GUYDOB: [place] [id number] [place] Insurance:AETNAPolicy [id number] [place] Number[facility] Hospital [address]Lre: (419) [id number] Repository [phone] (HP) Date:4412-85-33HP [address] [place] [address]VS: 07/05/2018 Secondary NOT GIVENUNK [place] Insurance:SELF PAY Community [facility] Number: Effective Repository Date:2018-07-05 06/28/2018 VIANCA AYLA Primary ESHA E GUYDOB: [place] [id number] [place] Insurance:AETNAPolicy [id number] access hospital [place] Number: Hospital [address]Gfu: (419) [id number] Repository [phone] (HP) Date:2574-66-86EH [address] [place] [address]CA: 06/28/2018 Secondary NOT GIVENUNK [place] Insurance:SELF PAY Community [facility] Number: Effective Repository Date:2018-06-28 06/28/2018 VIANCA AYLA Primary Esha E GuyDOB: [place] [id number] [place] Insurance:AETNAPolicy [id number] access hospital [place] Number: Hospital [address]Esy: (419) [id number] Repository [phone] (HP) Date:0745-31-76UF [address] [place] [address]GV: 06/28/2018 Secondary NOT GIVENUNK [place] Insurance:SELF PAY Community [facility] Hospital Number: Effective Repository Date:2018-06-28 06/11/2018 VIANCA AYLA Primary NOT GIVENUNK [place] [id number] [place] Insurance:SELF PAY [facility] [address]Jsy: (419) Number: Effective Repository [phone] () Date:2018-06-11 06/10/2018 VIANCA A Primary ESHA E GUYDOB: Yazidi GUYDOB: Insurance:1500 [id number] [facility] Number: MID[place]LE [facility], System [facility], [place] Repository [place] Date:2018-06-10 - [address]Rnr: [id number]: [id number] Name:[id number] O ()Tel: [phone] () [address] [place] [phone] (NS) [address]WP: 06/05/2018 VIANCA AYLA Primary Esha E GuyDOB: [place] [id number] [place] Insurance:AETNAPolicy [id number] Number: Hospital [address]Wjv: 419 [id number] Repository [phone] () Date:5112-34-64GT [address] [place] [address]ID: 06/05/2018 Secondary NOT GIVENUNK [place] Insurance:SELF PAY [facility] Number: Effective Repository Date:2018-04-01 05/25/2018 VIANCA AYLA Primary ANAHI GUYDOB: [place] [id number] [place] Insurance:AETNAPolicy [id number][place] Number: Hospital [address]Sht: 419 [id number] Repository [phone] () Date:3308-88-62ZR [address] [place] [address]VL: 05/25/2018 Secondary NOT GIVENUNK [place] Insurance:SELF PAY Community [facility] Hospital Number: Effective Repository Date:2018-05-25 05/12/2018 VIANCA AGUILA Primary Esha E GuyDOB: [place] [id number] [place] Insurance:AETNAPolicy [id number] Number: Hospital [address]Fol: 419 [id number] Repository [phone] (HP) Date:0770-69-38UM [address] [place] [address]XF: 05/12/2018 Secondary NOT GIVENUNK [place] Insurance:SELF PAY [facility] Number: Effective Repository Date:2018-05-12 03/24/2018 VIANCA A Primary ESHA E GUYDOB: Yazidi DAVIDYDOB: Insurance:1500 [id number] [facility] AETNAPolic Number: MID[place]LE [facility], System [facility], [place] Repository [place] [phone]: Date:2018-03-24 - [address]Vlr: [id number] (HP) Name:CD:[id number] O ()Tel: [phone]) [address] [place] [phone] () [address]PU: 03/16/2018 VIANCA AGUILA Primary Esha E GuyDOB: [place] [id number] [place] Insurance:AETNAPolicy [id number] access hospital [place] Number: Hospital [address]Tdl: 419 [id number] Repository [phone] (HP) Date:5940-61-09UH [address] [place] [address]OP: 03/16/2018 Secondary NOT GIVENUNK [place] Insurance:SELF PAY [facility] Number: Effective Repository Date:2018-03-16 09/25/2017 VIANCA A Primary ESHA E GUYDOB: Yazidi DAVIDYDOB: Insurance:AETNAPolicy [id number] [facility] Number: Effective [place], System [place], Date:2017-09-25 - [place] [phone]: Repository [place] [id number]: [id number] Name:CD:[id number] BOX (HP)Tel: [phone]) () 8368[address]GP [place] [phone] () [id number]: 09/25/2017 VIANCA Marti [facility] ESHA E GIOVANIOB: [facility] [id number] [facility] AETNAPolicy Number: [place]ONATHON [place], System [place], Effective [place] [id number]: Repository [place] [id number]: Date:2017-09-25 - [id number] ()Tel: [phone] (HP) Name:CD:[id number] O [phone] (WP) [address], [place] [address]SE:
== END 2018-07-21 01:40 | disposition home or self-care (01) ==
LOC: ED 23:21
PROVIDERS: Emergency Provider Emergency Medicine; Family Provider Internal Medicine; PCP Internal Medicine
DX: K59.00 Constipation, unspecified (principal); R10.31 Right lower quadrant pain; F41.9 Anxiety disorder, unspecified; Z79.899 Other long term (current) drug therapy
CPT/HCPCS: 74176; 80048; 81001; 84703; 85025; 96360; 96361; 99282; J7030; A4216

== ENCOUNTER → 2018-07-23 15:24 | Outpatient (CLI) | payer OTHER, SELFPAY ==
[2018-07-20 21:40] VITALS: BMI 33.5
== END ==
PROVIDERS: Family Provider Internal Medicine; PCP Internal Medicine; Referring Provider Otolaryngology Otolaryngology/Facial Plastic Surgery; Visit Provider Otolaryngology Otolaryngology/Facial Plastic Surgery
DX: J32.9 Chronic sinusitis, unspecified (principal)
CPT/HCPCS: 87070; 87077; 87186; 87205

== ENCOUNTER → 2018-08-25 12:37 | Outpatient (CLI) | payer OTHER, SELFPAY ==
[2018-08-17 15:50] VITALS: BMI 33.5
[2018-08-25 13:31] LABS: Absolute Lymphocyte Count 1.52 X10^3/ul (0.83-4.51); Absolute Neutrophil Count 4.5 X10^3/uL (2.0-7.7); Basophil# 0.01 X10^3/uL; Basophil% 0.2 % (0-1); Eosinophil# 0.03 X10^3/uL; Eosinophils% 0.5 % (0-5); Hematocrit 38.6 % (37-47); Hemoglobin 12.9 g/dl (12.0-15.0); Lymphocyte # 1.52 X10^3/ul (4.0); Lymphocyte % 23.8 % (19-41); Mean Corp Hgb Conc 33.4 g/gl (32-36); Mean Corpuscular Hgb 31.1 pg (27.0-32.0); Mean Platelet Vol. 10.7 fl (6.2-12.0); Monocyte# 0.31 X10^3/uL; Monocyte% 4.9 % (0-10); Neutrophil # 4.51 X10^3/uL (2.7-7.7); Neutrophil % 70.4 % (47-70); Platelet Count 226 K/mm3 (150-450); RBC Distribution Width CV 11.8 % (11.6-14.6); RBC Distribution Width SD 39.5 fl (35.1-43.9); Red Blood Count 4.15 M/mm3 (4.2-5.4); White Blood Count 6.4 K/mm3 (4.4-11.0)
[2018-08-25 13:45] LABS: POSITIVE COUNT NO; POSITIVE DIFFERENTIAL NO; POSITIVE MORPHOLOGY NO
[2018-08-25 14:02] LABS: Thyroid Stim Hormone (TSH) 0.88 uIU/mL (0.358-3.74)
[2018-08-29 10:20] LABS: Vitamin D 1,25-Dihydroxy 40.6 pg/mL (19.9-79.3)
== END ==
PROVIDERS: Referring Provider Obstetrics & Gynecology; Visit Provider Obstetrics & Gynecology
DX: R53.83 Other fatigue (principal)
CPT/HCPCS: 36415; 82652; 84443; 85025

== ENCOUNTER → 2020-04-18 13:22 | Outpatient (CLI) | payer OTHER, SELFPAY ==
[2020-04-18 13:01] VITALS: BMI 34.7
[2020-04-18 14:42] LABS: HIV - WCH Non-Reactive (Nonreactive)
[2020-04-19 03:03] LABS: Rapid Plasmin Reagin (RPR) NONREACTIVE (NONREACTIVE)
[2020-04-19 20:08] LABS: HCV Quant. RNA PCR HCV Not Detected IU/mL (.)
[2020-04-19 21:31] LABS: HSV 2 IgG < 0.91 index (0.00-0.90)
[2020-04-24 03:06] LABS: Chlamydia By Nucleic Acid AMP Negative (Negative)
[2020-04-24 12:04] LABS: Gonococcus By Nucleic Acid AMP Negative (Negative)
[2020-04-24 19:49] LABS: HPV Reflexed? NOT INDICATED
== END ==
PROVIDERS: PCP Internal Medicine; Referring Provider Nurse Practitioner Women's Health; Visit Provider Nurse Practitioner Women's Health
DX: Z11.3 Encounter for screening for infections with a predominantly sexual mode of transmission (principal); Z12.4 Encounter for screening for malignant neoplasm of cervix
CPT/HCPCS: 36415; 86592; 86695; 86696; 86703; 87491; 87522; 87591; 88175; G0145

== ENCOUNTER 2020-07-30 22:58 | Emergency (ER) | payer OTHER, SELFPAY ==
[2020-04-18 13:01] VITALS: BMI 34.7
[2020-07-30 23:00] VITALS: BP 153/96; PULSE 63; RESP 14; TEMP 36.7; O2SAT 100; BMI 34.4
[2020-07-30 23:01] VITALS: BP 153/96; PULSE 63; RESP 14; TEMP 36.7; O2SAT 100
[2020-07-30 23:15] LABS: Bacteria 0 SEEN /hpf (None Seen); Mucous, Urine 0 SEEN /hpf (<or=2+)
[2020-07-30 23:17] LABS: Color, Urine Yellow (Yellow); Glucose, Dipstick Normal (Normal); Ketone-Dipstick 5 mg/dl (Negative); Leukocyte Esterase-Dipstick 500 /ul (Negative); Nitrite-Dipstick Negative (Negative); Occult Blood-Urine 50 /ul (Negative); Protein-Dipstick 15 mg/dl (Negative); Specific Gravity, Urine 1.005 (1.002-1.030); Urine Bilirubin Dipstick Negative (Negative); Urine Clarity Clear (Clear); Urine Urobilinogen Normal (Normal)
--- NOTE | 2020-07-30 23:17 | ED.VIS.GEN ---
History of Present Illness Chief Complaint: Flank Pain Informant: Patient Onset: Yesterday Context: Onset with activity Timing: Continuous Narrative: Is a 24-year-old female with history of UTIs presenting with concern for UTI. Patient started developing some mild urgency, increased frequency of urination and pressure associated with voiding. Symptoms started yesterday. She also has had some loose stools today and some associated nausea. She still able to eat and drink however. Associated hematuria. She denies any abnormal vaginal discharge or bleeding. She denies any fever or chills. Does note discomfort in her suprapubic region and right flank. Not radiate. It is constant. She states that she self diagnosed a UTI based on symptoms about a month ago and took Augmentin that she had the house. Her symptoms had resolved at that point. She is also concerned about the frequency she gets UTIs over the past few years and would like a referral to urology. No other complaints at this time. Past Medical History - Allergies and Home Meds Allergies/Adverse Reactions: Allergies No Known Allergies Allergy (Verified 07/30/20 23:01) Primary Care Physician: Ladi York DO [Primary Care Provider] - Past Medical History: - - UTIs, pyelonephritis Surgical History: noncontributory, tonsillectomy, - - [place] teeth extraction Smoking Status: Never smoker Review of Systems General: Denies: Chills, Fever, Malaise, Sweats Eyes: Denies: Visual changes - bilaterally, Diplopia ENT: Denies: Rhinorrhea, Sore throat Cardiovascular: Denies: Chest pain, Palpitations Respiratory: Denies: Dyspnea, Cough, Dyspnea on exertion Gastrointestinal: Reports: Abdominal pain, Nausea. Denies: Vomiting, Diarrhea, Constipation, Melena, Hematochezia Genitourinary: Reports: Dysuria, Frequency. Denies: Hematuria Musculoskeletal: Denies: Back pain, Extremity Pain Skin: Denies: Rash, Wounds Neurological: Denies: Headache, Weakness, Numbness Physical Exam Vital Signs/Narrative: Vital Signs Temp Pulse Resp BP Pulse Ox 07/30/20 23:01 98.1 F 63 14 153/96 H 100 07/30/20 23:00 98.1 F 63 14 153/96 H 100 Inital Vital Signs reviewed: Yes General: Well nourished, Well developed, No Acute Distress Head: Normocephalic, Atraumatic Eyes: Perrl, EOMI ENT: Moist mucous membranes, No rhinorrhea Neck: Supple, Nontender Cardiovascular: Regular rate, Regular rhythm, No murmurs Respiratory: No distress, CTA bilaterally, Chest nontender Abdomen: Soft, Nontender, Nondistended, Normal bowel sounds, - - No pain at McBurney's point. Negative for: Guarding, Rebound tenderness Back: Nontender, Normal Inspection. Negative for: CVA tenderness, Spinal tenderness Extremities: Nontender, No edema Skin: Normal color, No rash Neurological: Alert, Oriented x3, Cranial nerves II-XII grossly intact, Normal Strength, Normal Sensation Psychological: Normal affect, Normal Mood Diagnostic/Tx/Re-eval Laboratory Data 07/30/20 23:05 Urine Color Yellow Urine Clarity Clear Urine pH 7.0 Ur [address] [employer] 1.005 Urine Protein 15 H Urine Glucose (UA) Normal Urine Ketones 5 H Urine Occult Blood 50 H Urine Nitrite Negative Urine Bilirubin Negative Urine Urobilinogen Normal Ur Leukocyte Esterase 500 H Urine RBC 0-5 SEEN Urine WBC 10-25 SEEN Ur Squamous Epith Cells 0-5 SEEN Urine Bacteria 0 SEEN Urine Mucus 0 SEEN Urine Test Negative - Medical Decision Making Evaluated for 2 days of UTI symptoms. She does have some mild associated suprapubic pain and flank pain. Her vital signs are normal. She is not have CVA tenderness. Physical exam is not consistent with pyelonephritis. I have a low suspicion for other acute intra-abdominal process. Urinalysis is consistent with UTI. Patient be started on Keflex and Pyridium for symptom control. She is given a prescription for Diflucan as she states she tends to get yeast infections after taking antibiotics. She is also counseled to eat yogurt or take a probiotic while on antibiotic to help limit this. Patient is given referral for urology per her request given that she is having frequent UTIs. Patient is counseled on signs and symptoms requiring return to the emergency room. Patient verbalizes agreement and understand this plan. Patient discharged home in stable and improved condition. ED Disposition - Plan for ED Patient: Disposition: Home or Assisted Living Diagnosis: UTI (urinary tract infection) Instructions: ED Bladder Infection, Female (Adult) Prescriptions: Fluconazole [Diflucan] 150 mg PO X1 #1 tab Prescription Printed Cephalexin [Keflex] 500 mg PO Q12 #14 cap Prescription Printed Phenazopyridine HCl [Pyridium] 200 mg PO TID #6 tab Prescription Printed Referrals: Ladi York DO [Primary Care Provider] - Madhavi Jeffries MD [STAFF PHYSICIAN] -
[2020-07-30 23:18] LABS: Internal QC Validated? YES +Cl - CLEAR BKGD; Pregnancy, Urine Negative Negative
[2020-07-30 23:24] LABS: Red Blood Cells-Urine 0-5 SEEN /hpf (0-5); Squamous Epithelial Cells - UA 0-5 SEEN /hpf (5-10); White Blood Cells 10-25 SEEN /hpf (0-5)
== END 2020-07-30 23:33 | disposition home or self-care (01) ==
PROVIDERS: Emergency Provider Emergency Medicine; PCP Internal Medicine
DX: N39.0 Urinary tract infection, site not specified (principal); Z87.440 Personal history of urinary (tract) infections
CPT/HCPCS: 81001; 81025; 87086; 87088; 87186; 99282

== ENCOUNTER → 2021-01-09 12:49 | Outpatient (CLI) | payer OTHER, SELFPAY | PROVIDERS: PCP Internal Medicine; Visit Provider Urology | DX: N39.0 Urinary tract infection, site not specified (principal) | CPT/HCPCS: 87077; 87086; 87088; 87186 ==